=== PATIENT | female | born 1975 | race Caucasian/White ===

== ENCOUNTER → 2021-06-09 15:42 | Outpatient (CLI) | payer BC, SELFPAY ==
--- NOTE | ~2021-06-09 | MM_ITS ---
EXAMINATION: MM screening [facility] BI w carla HISTORY: Screening mammogram TECHNIQUE: Craniocaudal and mediolateral oblique 3-D tomosynthesis images were obtained and synthetic 2-D images were generated. CAD analysis was submitted and interpreted. COMPARISON: 10/23/2007 bilateral diagnostic mammogram BREAST PARENCHYMAL COMPOSITION: The breasts are extremely dense, which lowers the sensitivity of mamm ography. FINDINGS: Questionable 9 x 12 mm mass in upper mid right breast on craniocaudal view. Diagnostic righ t mammogram is recommended, with ultrasound if required Otherwise there is no evidence of suspicious mass, calcification, or architectural distortion to sugg est malignancy in either breast. There has been no other suspicious interval change. IMPRESSION: 1. Questionable 9 x 12 mm mass, upper mid right breast on craniocaudal view; 2. Diagnostic right mammogram is recommended, with ultrasound if required BI-RADS Category 0: Incomplete: Needs additional imaging evaluation. Reviewed, dictated and finalized at location A.
== END ==
PROVIDERS: PCP Obstetrics & Gynecology; Visit Provider Obstetrics & Gynecology
DX: Z12.31 Encounter for screening mammogram for malignant neoplasm of breast (principal); R92.8 Other abnormal and inconclusive findings on diagnostic imaging of breast
CPT/HCPCS: 77063; 77067

== ENCOUNTER → 2021-06-28 13:58 | Outpatient (CLI) | payer BC, SELFPAY ==
--- NOTE | ~2021-06-28 | MMUS_ITS ---
EXAMINATION: MM diagnostic yuriy RT w carla, US breast RT complete HISTORY: Follow-up right breast asymmetry TECHNIQUE: Additional 3-D tomosynthesis images of the right breast were performed and synthetic 2-D i mages were generated. CAD analysis was submitted and interpreted. High resolution complete right dustin st ultrasound was performed. COMPARISON: 06/09/2021 BREAST PARENCHYMAL COMPOSITION: The breasts are extremely dense, which lowers the sensitivity of mamm ography FINDINGS: MAMMOGRAPHIC FINDINGS: There are no discrete masses, calcifications or architectural distortion in the right breast to sugge st malignancy. There are scattered nodular densities in the right breast which are obscured by dense fibroglandular tissue. ULTRASOUND: Complete US of all 4 quadrants of the the right breast and retroareolar region was reviewed. There ar e multiple simple and complicated cysts of the right breast. In addition, at 1:00, 6 cm from the nipp le there is an oval hypoechoic 4 mm mass with parallel orientation, circumscribed margins, no posteri or features and no internal vascularity. At 7:00, 5 cm from the nipple there is an oval circumscribed hypoechoic mass measuring 4 mm with parallel orientation, no posterior features and no internal vasc ularity. At 11:00, 4 cm from the nipple there is an oval hypoechoic mass measuring 6 mm with parallel orientation, no internal vascularity and posterior acoustic enhancement. IMPRESSION: 1. Probable benign right breast masses. 2. Recommend 6 month follow-up diagnostic right mammogram and ultrasound BI-RADS category 3, probably benign findings. Reviewed, dictated and finalized at location A. IMPRESSION: 1. Probable benign right breast masses. 2. Recommend 6 month follow-up diagnostic right mammogram and ultrasound BI-RADS category 3, probably benign findings.
== END ==
PROVIDERS: PCP Obstetrics & Gynecology; Visit Provider Obstetrics & Gynecology
DX: R92.8 Other abnormal and inconclusive findings on diagnostic imaging of breast (principal)
CPT/HCPCS: 76641; 77061; 77065; G0279

== ENCOUNTER 2021-07-13 17:55 | Emergency (ER) | payer BC, SELFPAY ==
--- NOTE | ~2021-07-13 | XR_ITS ---
EXAM: XR foot RT min 3V DATE: 07/13/2021 18:10 HISTORY: trauma 2 days ago/ lateral foot pain . COMPARISON: None available. FINDINGS: Normal mineralization. Oblique, mildly comminuted, right fifth metatarsal shaft fracture w ith one half shaft width medial displacement. No lytic or blastic lesion. Plantar enthesopathy. Os na vicularis. No erosion or periosteal change. Soft tissues within normal limits. IMPRESSION: Minimally comminuted, oblique and medially displaced right fifth metatarsal shaft fractur e. Reviewed, dictated and finalized at location K. IMPRESSION: Minimally comminuted, oblique and medially displaced right fifth me tatarsal shaft fracture.
[2021-07-13 18:18] VITALS: BP 118/46; PULSE 76; RESP 18; TEMP 36.8; O2SAT 100
--- NOTE | 2021-07-13 18:18 | ED.LOWEXIN ---
HPI - Extremity Injury (Lower) General Chief Complaint: Extremity Injury, Lower Stated Complaint: Rt Foot Pain Time Seen by Provider: 07/13/21 18:18 History of Present Illness HPI Narrative: richard Dillard is a 46-year-old female with no PMH who comes to [facility] with pain in her right foot on the lateral side after falling off a barstool on Sunday and hit her foot. The area is bruised and she states she states it does not getting any better. Area is bruised Related Data Allergies Allergy/AdvReac Type Severity Reaction Status Date / Time Penicillins Allergy Severe Swelling Verified 07/13/21 18:07 Review of Systems Review of Systems: CONSTITUTIONAL: Denies fever, chills, sweats. EYES: Denies visual changes, redness, discharge. ENT: Denies rhinorrhea, congestion, sore throat, otalgia. CARDIOVASCULAR: Denies chest pain, palpitations, edema. RESPIRATORY: Denies dyspnea, wheezing, cough GASTROINTESTINAL: Denies abdominal pain, nausea, vomiting, diarrhea. GENITOURINARY: Denies dysuria, hematuria, abnormal discharge SKIN: Denies rash or itching. NEUROLOGIC: Denies numbness, or focal weakness. PSYCHIATRIC: Denies anxiety or depression. Right foot pain with bruising around the lateral side of the foot and fifth toe PMFSH Comments At time of signature, I agree with nursing past medical, surgical, social and family history. There is no relevant family history pertinent to the presenting complaint. Exam Narrative: GENERAL: This is a well-nourished, well-developed patient, in mild distress. HEAD: normocephalic, atraumatic. EYES: PERRL. Sclera clear/white. Vision is grossly intact. EARS: External ears normal, auditory canals clear and without drainage, TMs normal without perforation. Hearing grossly intact. NOSE: External nose normal without nasal discharge, nares without redness, no rhinorrhea. THROAT: Mucous membranes moist, posterior pharynx NECK: Neck supple, non-tender CARDIOVASCULAR: Regular rate and rhythm without murmurs, gallops, or rubs. RESPIRATORY: Clear to auscultation. Breath sounds equal bilaterally. No wheezes, rales, or rhonchi. GASTROINTESTINAL: Abdomen soft, non-tender, SKIN: warm, intact with no suspicious lesions or rash, good texture and turgor. NEURO: awake, alert, and oriented to person, place and time. There were no obvious focal neurologic abnormalities. Steady gait EXTREMITIES: Normal range of motion. BACK: Nontender without deformity Course Course Emergency Course: Patient comes to the [facility] for an x-ray of the foot after fall off a barstool on Sunday and her foot is swollen and bruised and not improved X-ray shows I minimally comminuted oblique mildly displaced right fifth metatarsal shaft fracture soft tissues are within normal limits Patient being sent to podiatry right foot in a an Vinny wrap and post op shoe narcotic approval escribe not functioning. Called in Tylenol 3 #20 for pain Level of Care: Express Care Visit Vital Signs Vital signs: Vital Signs Temperature 98.2 F 07/13/21 18:18 Pulse Rate 76 07/13/21 18:18 Respiratory Rate 18 07/13/21 18:18 Blood Pressure 118/46 L 07/13/21 18:18 Pulse Oximetry 100 07/13/21 18:18 Oxygen Delivery Room Air 07/13/21 18:18 Temperature 98.2 F 07/13/21 18:18 Pulse Rate 76 07/13/21 18:18 Respiratory Rate 18 07/13/21 18:18 Blood Pressure 118/46 L 07/13/21 18:18 Pulse Oximetry 100 07/13/21 18:18 Oxygen Delivery Room Air 07/13/21 18:18 MDM - Extremity Injury (Lower) Differential Diagnosis Differential diagnosis: Likely ankle sprain and strain, fracture of toe and other (Fracture foot) Critical Care Time Critical Care Time Critical Care Time: No Discharge Plan Discharge Clinical Impression: Metatarsal bone fracture Qualifiers: Encounter type: initial encounter Metatarsal bone: fifth Fracture type: closed Fracture alignment: displaced Laterality: right Qualified Code(s): S92.351A - Displaced fracture o
== END 2021-07-13 18:43 | disposition home or self-care (01) ==
PROVIDERS: Emergency Provider Nurse Practitioner
DX: S92.351A Displaced fracture of fifth metatarsal bone, right foot, initial encounter for closed fracture (principal); W07.XXXA Fall from chair, initial encounter
CPT/HCPCS: 73630; 99214; G0463

== ENCOUNTER 2021-07-22 04:49 | Day surgery (SDC) | payer BC, SELFPAY ==
[2021-07-19 08:31] VITALS: BMI 26.5
--- NOTE | 2021-07-19 08:39 | SUR.PREOP ---
-Report to the Outpatient Waiting Room, entrance under the green pavilion located off [facility], at time 1030 on date 07/19/21. OR Time: 1230. - You and your visitor will be asked a series of questions to screen for COVID 19 for your protection. - Only one visitor is allowed at this time. - The patient visitor is requested to leave or wait in car when not with patient. - A mask is required within the hospital. Patients may have clear liquids (water, carbonated beverages, clear teas, apple juice) until 3 hours prior to surgery with a maximum of 20 ounces. - No food from midnight until time of surgery. Take the following medications with a SIP of water the morning of surgery__N/A__ Medications to discontinue per physician ___N/A__ Date to take last dose_N/A_ Please no make-up, nail iraqi, hairspray, perfume, deodorant, or body powder the day of surgery. No jewelry (including any body piercings) or valuables the day of surgery, leave them at home. Please take a shower or bath the night before, or the morning of, surgery with an antibacterial soap. Wear comfortable, loose fitting clothing. - Jewelry must be removed prior to entering the operating room. Rings and piercings that are not removed may be cut off. - The hospital will not accept responsibility for valuables. - Please leave all valuables, including medications, at home the day of surgery. If you are going home after surgery, a licensed truck driver's offsider must drive you home. - NO public transportation without another adult. - We recommend that an adult stay with you for 24 hours following discharge. - We also recommend that you do not drive, make important decision, drink alcoholic beverages, or take any drugs that were not prescribed by your health care provider for at least 24 hours after your discharge time. Follow any additional instructions given to you from your surgeon. If you or anyone in your household have experienced Covid symptoms in the past week, please notify your surgeon or the nurse liaison at the phone number below for possible testing. Telephone instructions given to patient and asked if any additional questions and then verbalized understanding. Patient advised to call surgeon office or pre surgery nurse liaison [phone] if any additional questions.
[2021-07-22] VITALS (8 sets, daily range): BP systolic 108–135; BP diastolic 63–81; PULSE 77–93; RESP 10–20; TEMP 36.7–37; O2SAT 98–100
--- NOTE | ~2021-07-22 | XR_ITS ---
EXAMINATION: XR surgery orthopedic DATE: 07/22/2021 13:19 INDICATION: ORIF right foot fracture TECHNIQUE: 2 fluoroscopic images of the right forefoot were obtained during procedure performed by Dr Eugenia Farmer. Radiologist was not present for the imaging or procedure. The amount of fluoroscopy ti me used during this procedure was 0.1 minutes. COMPARISON: None. FINDINGS: Initial image demonstrates open reduction of an oblique extra articular fluid mid diaphyseal fracture of the right fifth metatarsal. Subsequent image demonstrates fixation of the flexor with dorsal plat e and screw fixation. Alignment post fixation appears near-anatomic on the provided projection. Expec nishant small amount of soft tissue gas at the operative bed. No other fractures identified. Mild osteoar thritis at the second and fifth tarsal metatarsal joints. IMPRESSION: 1. Near-anatomic alignment post open reduction and internal fixation of a mid diaphyseal fracture of the right fifth metatarsal. Reviewed, dictated and finalized at location A. IMPRESSION: 1. Near-anatomic alignment post open reduction and internal fixation of a mid d iaphyseal fracture of the right fifth metatarsal.
--- NOTE | 2021-07-22 07:14 | WPDANESEPPF ---
Anes - Initial Pre Proc Eval Procedure: Operation Date: 07/22/21 12:30 Proposed Procedures p Open Reduction Internal Fixation Fifth Metatarsal Fracture Right Foot - Brando Farmer DPM Date/Time: 07/22/21 07:14 Surgeon: Brando Farmer DPM Pre Op Diagnosis: 5th metatarsal fx right foot Patient Data Age: 46 Gender: F Height: 1.6 m Weight: 68.04 kg Allergies Allergy/AdvReac Type Severity Reaction Status Date / Time Penicillins Allergy Severe FACIAL Verified 07/22/21 10:33 SWELLING/HIVES Home Medications Medication Instructions Recorded Confirmed Type No Home Medications 07/19/21 07/22/21 History Patient hx anesthesia problems: none Family hx anesthesia problems: none Results Review: All pre-operative results and documents have been reviewed as part of the pre-operative evaluation. [facility] Past Medical History Medical History (Updated 07/22/21 @ 07:15 by Thierry Frazier DO) Migraine Social History Social History Smoking status: Never smoker Second hand tobacco smoke exposure: No Alcohol intake: current Drinks per week: 1 Substance use: never Living arrangements: with family Spiritual care concerns: No Anes - Eval Final PreProcedure Day of Procedure 07/22/21 07:14 Patient weight: overweight Heart: regular rate and rhythm Lungs: clear to auscultation Airway: Mallampati scale class II Neurological: alert and oriented Last oral intake: >/= 8 hours ASA classification: II Emergent: no Anesthetic plan: proceed Anesthesia type and monitoring: general LMA and standard monitoring Results Review: All pre-operative results and documents have been reviewed as part of the pre-operative evaluation. Informed Consent: The patient's anesthetic plan and its attendant risks and benefits were discussed with the patient/family/POA. Questions were solicited and answers provided to the satisfaction of the patient/family/POA.
[2021-07-22] MEDS: LACTATED RINGERS 1,000 ML 30 ML IV CONT (11:03)
--- NOTE | 2021-07-22 12:07 | WPDHPUPDATE1 ---
History and Physical Update Update Date/Time: 07/22/21 12:07 History and Physical has been reviewed, including an updated exam of the patient. There are NO changes in the patient's condition. Risks, benefits, and alternatives have been discussed and questions answered. Patient agrees to proceed with procedure.
[2021-07-22] MEDS: ceFAZolin 2 GM/D5W 50 ML 2 GM/50 ML BAG IVPB (12:27)
--- NOTE | 2021-07-22 13:31 | PM.OP ---
Procedure Note - Brief Procedure Note - Brief Date of procedure: 07/22/21 Pre-op diagnosis: 5th metatarsal fx right foot 5th metatarsal fracture right Post-op diagnosis: Same Procedure performed: ORIF 5th metatarsal fracture right Description of procedure: Under monitored sedation patient was brought into the operating room, placed on the operating table. Following general anesthesia the foot was then scrubbed, prepped, and draped in the usual aseptic manner. Esmark bandage was used to exsanguinate the patient?s right foot and the ankle tourniquet inflated to 250mm. Attention was directed to the 5 th metatarsal where a linear incision was made over the 5 th metatarsal. It was deepened down to the level of the bone using sharp and blunt dissection. Care was taken to identify and retract all vital, neural and vascular structures. The fracture was identified and reduced. Flouro was used to assess correction At this time it was noted that excellent correction was obtained. The fracture was fixated using one 2.0 lag screw and a plate with 3 2.0 locking screws. Wound was flushed with copious amounts of sterile normal saline. Deep tissue repaired using 3-0 vicryl and skin repaired using 5-0 vicryl. The wound was then covered with a dry, sterile compressive dressing consisting of Steristrips, antibiotic ointment, Adaptic, 4 x 4?s, Valentin and Coban. The ankle tourniquet was deflated and prompt capillary refill response noted to all digits of the right foot. Patient tolerated procedure and anesthesia well. She was transferred to the recovery room with vital signs stable and neurovascular status intact to all digits of the right foot. Following a period of post-operative monitoring the patient will be discharged home with written and oral post-operative instructions. Implants: 2.0 screw x 3 6 hole plate All from [employer] [place] set Anesthesia: GLMA Surgeon: Brando Farmer DPM Estimated blood loss (mL): 5
[2021-07-22] MEDS: oxyCODONE HCL (*CRX) 5 MG TAB IR PO (14:29)
== END 2021-07-22 15:00 | disposition home or self-care (01) ==
PROVIDERS: Visit Provider Podiatrist Foot & Ankle Surgery
PROC: (CPT 28485; principal; 2021-07-22 12:30)
DX: S92.351A Displaced fracture of fifth metatarsal bone, right foot, initial encounter for closed fracture (principal); W17.89XA Other fall from one level to another, initial encounter
CPT/HCPCS: 28485; A9270; J0690; J1100; J2250; J2405; J2704; J3010; J7120

== ENCOUNTER 2022-05-03 14:35 | Emergency (ER) | payer BC, SELFPAY ==
--- NOTE | 2022-05-03 14:43 | ED.URI ---
HPI - URI/Sore Throat General Chief Complaint: Upper Respiratory Infection Stated Complaint: Headache Time Seen by Provider: 05/03/22 14:50 Source: patient and RN notes reviewed Mode of arrival: ambulatory Limitations: no limitations History of Present Illness HPI Narrative: 47-year-old female presents with concern for headache, nasal congestion for 4 days. She reports she has tried Excedrin, cold medicine. She reports she has had a little bit of postnasal drainage in sore throat. She denies fever, chills, sweats. She denies nausea, vomiting. MD elicited complaint: nasal congestion and other (Headache) Related Data Allergies Allergy/AdvReac Type Severity Reaction Status Date / Time Penicillins AdvReac Severe FACIAL Verified 05/03/22 14:38 SWELLING/HIVES Review of Systems Review of Systems: CONSTITUTIONAL: Denies malaise, chills, sweats, or fever. EYES: Denies visual changes, redness, or discharge. ENT: Reports rhinorrhea, congestion, sinus pain and sore throat. CARDIOVASCULAR: Denies chest pain, palpitations, or edema. RESPIRATORY: Denies cough. Denies dyspnea. GASTROINTESTINAL: Denies abdominal pain, nausea, vomiting, diarrhea SKIN: Denies rash or itching. MUSCULOSKELETAL: Denies myalgia. NEUROLOGIC: Reports headache. All systems reviewed & are unremarkable except as noted in HPI and below PMFSH Past Medical History Medical History (Updated 05/03/22 @ 15:09 by Marzena Park NP) Migraine Social History Social History Smoking status: Never smoker Second hand tobacco smoke exposure: No Alcohol intake: current Drinks per week: 1 Substance use: never Living arrangements: with family Spiritual care concerns: No Comments At time of signature, agree with nursing past medical, surgical, social and family history. There is no relevant family history pertinent to the presenting complaint Exam Narrative: GENERAL: Well-appearing, well-nourished, and in no acute distress. HEAD: Normocephalic EYES: PERRLA, conjunctivae clear ENT: Nares clear, turbinates edematous and erythematous, clear discharge. Mucous membranes moist. TM pearly khalil with dull light reflex bilaterally; no tragal tenderness. Oropharynx not erythematous without lesions. Tonsils not enlarged and without exudate, no drooling, no hoarseness, no trismus, uvula midline. NECK: Supple. No lymphadenopathy CHEST: Clear to auscultation, breath sounds equal. No wheezing, rhonchi, rales, or stridor. No respiratory distress, speaks in full sentences. HEART: Regular rate and rhythm. No murmur heard. SKIN: Warm, dry, no rash. NEURO: Alert and oriented x3. PSYCH: Normal mood and affect Course Course Emergency Course: Ketorolac IM given for headache Patient is aware of diagnosis, understands and agrees to treatment plan. Anticipatory guidance given. Patient agrees to follow-up as directed and is aware of reasons to seek care at the emergency department. Portions of this record may have been created with voice recognition software Level of Care: Express Care Visit Vital Signs Vital signs: Reviewed. MDM - URI/Sore Throat MDM Narrative Medical decision making narrative: Differential diagnosis considered: Kc virus, strep pharyngitis, allergic rhinitis, upper respiratory tract infection, sinusitis, rhinosinusitis, nasopharyngitis. viral pharyngitis, otitis media, otitis externa, pneumonia, bronchitis, viral cough syndrome, viral syndrome, and influenza. Exam findings show no acute concerns or changes; patient is non-toxic appearing and is in no distress. Patient is appropriate for outpatient treatment and follow-up. Lab Data Attestation: I reviewed the patient's lab results. Critical Care Time Critical Care Time Critical Care Time: No Discharge Plan Discharge Clinical Impression: Sinusitis Qualifiers: Sinusitis location: unspecified location Chronicity: acute Recurrence: non-re
[2022-05-03 14:44] VITALS: BP 128/72; PULSE 96; RESP 18; TEMP 36.9; O2SAT 100
[2022-05-03] MEDS: KETOROLAC (*BKC) 60 MG/2 ML VIAL IM (15:08)
== END 2022-05-03 15:20 | disposition home or self-care (01) ==
PROVIDERS: Emergency Provider Nurse Practitioner
DX: J01.90 Acute sinusitis, unspecified (principal)
CPT/HCPCS: 87081; 87426; 87880; 96372; 99213; C9803; G0463; J1885

== ENCOUNTER 2022-08-20 09:56 | Emergency (ER) | payer OTHER, SELFPAY ==
--- NOTE | ~2022-08-20 | XR_ITS ---
XR foot LT min 3V DATE: 08/20/2022 10:33 INDICATION: Dropped pallet on top of foot last night. Foot pain. TECHNIQUE: 4 views COMPARISON: None FINDINGS: Mild plantar calcaneal enthesopathy without erosive change or periostitis. Os tibiale externum, normal variant. Mild osteoarthritis at the first metatarsophalangeal joint. No fracture, dislocation, periosteal reaction or bone destruction is detected. IMPRESSION: No fracture or dislocation Mild first metatarsophalangeal osteoarthritis Mild plantar calcaneal enthesopathy Reviewed, dictated and finalized at location A.
[2022-08-20 10:23] VITALS: BP 110/73; PULSE 83; RESP 16; TEMP 36.2; O2SAT 100
--- NOTE | 2022-08-20 10:40 | ED.LOWEXIN ---
HPI - Extremity Injury (Lower) General Chief Complaint: Extremity Injury, Lower Stated Complaint: lt foot injury Time Seen by Provider: 08/20/22 10:40 Source: patient Mode of arrival: ambulatory Limitations: no limitations History of Present Illness HPI Narrative: 47 y/o female presented for c/o left foot pain after injury yesterday. States she dropped a wooden palate on her foot and has had pain to the top of the foot since. Denies numbness, tingling or weakness. Walking with a limp. Taking ibuprofen and has applied ice and elevated the foot. States the swelling has gone down. Related Data Home Medications Medication Instructions Recorded Confirmed No Home Medications 08/20/22 08/20/22 Allergies Allergy/AdvReac Type Severity Reaction Status Date / Time Penicillins AdvReac Severe FACIAL Verified 08/20/22 10:15 SWELLING/HIVES Review of Systems Review of Systems: CONSTITUTIONAL: Denies body aches, fever, chills EYES: Denies visual changes ENT: Denies rhinorrhea, congestion CARDIOVASCULAR: Denies chest pain, palpitations, or edema. RESPIRATORY: Denies cough or dyspnea. GASTROINTESTINAL: Denies abdominal pain, nausea, vomiting, or diarrhea. SKIN: Denies rash, itching, or wounds. MUSCULOSKELETAL: Reports foot pain Denies back pain, joint pain, or myalgia. NEUROLOGIC: Denies headache, numbness, tingling, or weakness. All systems reviewed & are unremarkable except as noted in HPI and below PMFSH Past Medical History Medical History Migraine Social History Social History Smoking status: Never smoker Second hand tobacco smoke exposure: No Alcohol intake: current Drinks per week: 1 Substance use: never Living arrangements: with family Spiritual care concerns: No Comments At time of signature, I have reviewed and agree with nursing past medical, surgical, social and family history unless otherwise noted. Please see nursing chart for further information. There is no relevant family history pertinent to the presenting complaint Exam Narrative: GENERAL: Well-appearing HEAD: Normocephalic, atraumatic. EYES: PERRLA, conjunctivae clear NECK: Supple. CHEST: Speaks in full sentences. No respiratory distress. HEART: Regular rate and rhythm. Normal and equal peripheral pulses. EXTREMITIES: Left dorsal mid foot with mild swelling and tenderness; foot has normal strength and sensation, normal range of motion. No ecchymosis, No open wounds, or obvious deformity; alignment normal, pulse palpable and equal bilaterally, skin warm, dry, pink. Capillary refill less than 3 seconds. SKIN: Warm, dry, no rash. NEURO: Alert and oriented x3. PSYCH: Normal mood and affect Course Course Emergency Course: Patient is aware of diagnosis, understands and agrees to treatment plan. Anticipatory guidance given. Patient agrees to follow-up as directed and is aware of reasons to seek care at the emergency department. Portions of this record may have been created with voice recognition software Level of Care: Express Care Visit Vital Signs Vital signs: Vital Signs Temperature 97.2 F L 08/20/22 10:23 Pulse Rate 83 08/20/22 10:23 Respiratory Rate 16 08/20/22 10:23 Blood Pressure 110/73 08/20/22 10:23 Pulse Oximetry 100 08/20/22 10:23 Oxygen Delivery Room Air 08/20/22 10:23 Temperature 97.2 F L 08/20/22 10:23 Pulse Rate 83 08/20/22 10:23 Respiratory Rate 16 08/20/22 10:23 Blood Pressure 110/73 08/20/22 10:23 Pulse Oximetry 100 08/20/22 10:23 Oxygen Delivery Room Air 08/20/22 10:23 Reviewed MDM - Extremity Injury (Lower) MDM Narrative Medical decision making narrative: Results of x-ray reviewed with patient. Discussed physical exam findings. Advised supportive measures and signs/symptoms to go to the ER. Pt is appropriate for outpt treatment
== END 2022-08-20 10:48 | disposition home or self-care (01) ==
PROVIDERS: Emergency Provider Nurse Practitioner Family
DX: S90.32XA Contusion of left foot, initial encounter (principal); W20.8XXA Other cause of strike by thrown, projected or falling object, initial encounter
CPT/HCPCS: 73630; 99213; G0463

== ENCOUNTER 2024-06-21 15:48 | Emergency (ER) | payer OTHER, SELFPAY ==
--- NOTE | ~2024-06-21 | XR_ITS ---
XR foot RT min 3V Ordering provider: BRENDAN Saab History: . fall rolled foot today/lateral pain swelling . Comparison: None. FINDINGS: BONES: No acute fracture or dislocation. Postoperative changes in the fifth metatarsal bone. JOINT SPACES: Normal. No tarsal coalition. SOFT TISSUES: Normal. Calcaneal spur. IMPRESSION: No acute osseous abnormality of the right foot. Reviewed, dictated and finalized at location A.
--- OUTSIDE RECORDS SUMMARY | 2024-06-21 15:50 | XMS_ITS | Data Portability ---
Author Organization [facility] Address [address] [place] [address] Care Team Providers Care Transition Assistant Name Role Phone GILBERTO DUARTE Primary Care Provider [phone] Assessment Encounter Date Assessment Date Assessment LastModified by Organization Details LastModified Time 04/19/2021 04/19/2021 healthy female exam patient declines std testing pap done, discussed guidelines mammogram ordered and encouraged contraception- tubes tied FU 1 year or prn [email or web address] Not available 04/19/2021 12:49:11 04/07/2024 04/07/2024 Annual gynecological exam performed. Patient will come back in a year unless there are new symptoms. [email or web address] Not available 04/04/2024 09:15:03 Plan of Treatment Reminders Order Date Submit Date Provider Last Modified By Organization Details Last Modified Time Details Appointments MED CHECK 2024 05:00P M EDDA BOLDEN NP Not available Not available Not available Lab None recorded. Referral None recorded. Procedures colonosco py screening (PROC) 2024 025 [facility], [address], [address], [place], [address], 04/07/2024 18:03:41 Surgeries None recorded. Imaging MAMMO, screening , digital, bilateral 2024 025 [facility], [address], [place], [address], 04/14/2024 04:05:42 Medication Orders progester one micronize d 100 mg capsule 2024 [facility] #[id number], [address] [place], [address], 05/19/2024 17:59:41 estradiol 0.05 mg/24 hr semiweekl y transderm al patch 2024 025 [id number] [address] [place], [address], 05/19/2024 17:59:41 Effexor XR 37.5 mg capsule,e xtended release 2024 [id number] [address] [place], [address], 04/07/2024 17:14:35 Patient TargetsNo targets recorded. Patient InstructionsNo instructions recorded. Reason for Referral None Reported. Results Created Date Observation Date Name Description Value Unit Range Abnormal Flag Note LastModifiedBy Organization Detail LastModifiedTime 04/20/19 22 04/19/2021 IMAGE GUIDE D PAP AND HPV REGAR DLESS image guided Pap, HPV regardless of Pap result SEE RESULT S BELOW CASE REPOR T: Cytol ogy Gynec ologi adams Repor t Case: [id number] Autho don villegas Provi freedom: Meghan Encarnacion MD Colle cted: 04/19 1456 Order ing Locat ion: [place] Patho logy Recei jack: 04/20 0053 First Scree n: María Flores CT Speci men: Scree carol Pap - Image d, Cervi x STATE MENT OF ADEQU ACY: Satis facto ry for evalu ation Trans forma tion zone compo nent prese nt FINAL DIAGN OSIS: Negat kylah for Intra epith elial Lesio n or Hardeep nash (NIL) . Elect miguelina dillon denia d by María Flores CT on 2021 at 11:22 AM ----- ----- ----- ----- ----- ----- ----- ----- ----- ----- ----- ----- ----- ----- ----- ----- ----- ---- HPV RESUL TS: HPV mRNA E6/E7 : No HPV mRNA Detec nishant NOTE: This high risk HPV mRNA assay detec ts fourt een high- risk HPV types (16, 18, 31, 33, 35, 39, 45, 51, 52, 56, 58, 59, 66, 68) witho ut diffe renti ation . COMME NT: Note: This speci men was revie wed by a Cytot echno logis t and/o r Patho logis t (as indic ated in this repor t) after evalu ation using the Thinp rep Imagi ng Syste m. CLINI ADAMS INFOR MATIO N: Menst rual Statu s: LMP (if appli cable ): Clini adams Histo ry/Pr eviou s Pap: Type of Neopl aubrie (if appli cable ): Signi fican t Clini adams Findi ngs: Other Histo ry: Hormo richard (if appli cable ): PAP EDUCA PATRICIA L NOTE: The Pap Test is a scree carol test with an inher ent false negat kylah rate. Liqui d-bas ed sampl ing may decre ase, but will not elimi barbara, false negat kylah resul ts. A negat kylah resul t does not precl ude the prese nce and/o r devel opmen t of disea se, since the prese nce of abnor mal cells in the sampl e depen ds on the locat ion of the lesio n and sampl ing techn ique. Verito nued regul ar scree carol is the best metho d of cance r preve ntion . If repor nishant cytol ogic findi ng do not corre late with physi adams and/o r histo rical findi ngs, furth er inves tigat ion is recom sabrina d, as clini manuel cárdenas nted. Not Available [facility] (Lab) [address], [place], [address], 04/26/2021 12:24:52 04/09/19 25 04/08/2024 IMAGE GUIDE D PAP AND HPV REGAR DLESS image guided Pap, HPV regardless of Pap result SEE RESULT S BELOW CASE REPOR T: Cytol ogy Gynec ologi adams Repor t Case: [id number] Autho don villegas Provi freedom: Dermo dy, Edda , ANP, SLIP LASTER Colle cted: 04/08 0841 Order ing Locat ion: [place] Patho logy Recei jack: 04/09 0756 First Scree n: Ledy Hartman, CT Speci men: Ugo medina Pap - Image d, Cervi x STATE MENT OF ADEQU ACY: Satis facto ry for evalu ation Trans forma tion zone compo nent prese nt ----- ----- ----- ----- ----- ----- ----- ----- ----- ----- ----- ----- ----- ----- ----- ----- ----- ---- FINAL DIAGN OSIS: Negat kylah for Intra epith elial Isabella mccollum or Hardeep nash (NIL) . Elect miguelina loza d by Ledy Hartman , CHRISTOPHE on 025 at 0922 [employer] PROF[employer] ----- ----- ----- ----- ----- ----- ----- ----- ----- ----- ----- ----- ----- ----- ----- ----- ----- ---- HPV RESUL TS: HPV mRNA E6/E7 : No HPV mRNA Detec nishant NOTE: This high risk HPV mRNA assay detec ts fourt een high- risk HPV types (16, 18, 31, 33, 35, 39, 45, 51, 52, 56, 58, 59, 66, 68) witho ut diffe renti ation . COMME NT: This speci men was revie wed by a Cytot echno logis t and/o r Patho logis t (as indic ated in this repor t) after evalu ation using the Thinp rep Imagi ng Syste m. CLINI ADAMS INFOR MATIO N: Menst rual Statu s: LMP (if appli cable ): Clini adams Histo ry/Pr eviou s Pap: Type of Neopl aubrie (if appli cable ): Signi fican t Clini adams Findi ngs: Other Histo ry: Hormo richard (if appli cable ): PAP EDUCA PATRICIA L NOTE: The Pap Test is a scree carol test with an inher ent false negat kylah rate. Liqui d-bas ed sampl ing may decre ase, but will not elimi barbara, false negat kylah resul ts. A negat kylah resul t does not precl ude the prese nce and/o r devel opmen t of disea se, since the prese nce of abnor mal cells in the sampl e depen ds on the locat ion of the lesio n and sampl ing techn ique. Verito nued regul ar scree carol is the best metho d of cance r preve ntion . If repor nishant cytol ogic findi ng do not corre late with physi adams and/o r histo rical findi ngs, furth er inves tigat ion is recom sabrina d, as clini manuel warra nted. Not Available [facility] ([facility]) [address], [place], [address], 04/11/2024 10:27:56 06/10/19 22 06/09/2021 MAMMO , scree carol, bilat eral No observ ation record ed. [facility] [address], [place], [address], 06/13/2021 10:52:25 06/11/19 22 06/09/2021 MAMMO , scree carol, bilat eral No observ ation record ed. [facility] [address], [place], [address], 08/12/2021 10:39:55 06/29/19 22 06/28/2021 MAMMO , diagn ostic , unila teral No observ ation record ed. [facility] [address], [place], [address], 06/29/2021 15:04:20 Result Notes None recorded. Procedures Surgical History Date Name Laterality Status Provider Name and Address Organization Details Recorded Time 3 Date of Last Pap Smear completed [facility] 05/19/2024 17:38:15 3 Date of Last Mammogram completed [facility] 05/19/2024 17:38:14 4 Tubal Ligation completed [facility] 04/19/2021 12:05:34 Ectopic completed [facility] 04/07/2024 17:00:31 Imaging Results Imaging Date Name Status LastModified by Organiz ation Details LastModified Time 06/09/2021 MAMMO, screening, bilateral completed [facility] [address], [place], [address], 06/13/2021 10:52:25 06/09/2021 MAMMO, screening, bilateral completed [facility] [address], [place], [address], 08/12/2021 10:39:55 06/28/2021 MAMMO, diagnostic, unilateral completed [facility] [address], [place], [address], 06/29/2021 15:04:20 Procedure Notes None recorded. Medical Equipment None Reported. Medications Name Sig Start Date Stop Date Status Note LastModified by Organization Details LastModified Time venlafaxine ER 37.5 mg capsule,ext ended release 24 hr TAKE 1 CAPSULE BY MOUTH EVERY DAY active Not Available Not Available No t Available sumatriptan 100 mg tablet PLEASE SEE ATTACHED FOR DETAILED DIRECTION S active Not Available Not Available No t Available estradiol 0.05 mg/24 hr semiweekly transdermal patch APPLY 1 PATCH TRANSDERM ALLY TWICE A WEEK active Not Available Not Available No t Available progesteron e micronized 100 mg capsule TAKE 1 CAPSULE BY MOUTH EVERYDAY AT BEDTIME active Not Available Not Available No t Available nitrofurant oin monohydrate /macrocryst als 100 mg capsule TAKE 1 CAPSULE TWICE A DAY FOR 5 DAYS 05/19 completed Not Available Not Available Not Available Ubrelvy 100 mg tablet TAKE 1 TABLET EVERY DAY NEEDED FOR 30 DAYS active Not Available Not Available No t Available Vitals Date Recorded Body height Body mass index (BMI) Body weight Systolic blood pressure Diastolic blood pressure Provider Name and Address Organization Details Last Updated DateTime 04/19/2021 160.02 cm 27.1 kg/m2 86973.63 g 129 mm[Hg] 77 mm[Hg] [facility] 2 12:05:21 Date Recorded Body height Body mass index (BMI) Body weight Systolic blood pressure Diastolic blood pressure Provider Name and Address Organization Details Last Updated DateTime 04/07/2024 160.02 cm 21.5 kg/m2 80685.83 g 119 mm[Hg] 81 mm[Hg] [facility] 5 16:55:59 Date Recorded Body height Body mass index (BMI) Body weight Systolic blood pressure Diastolic blood pressure Provider Name and Address Organization Details Last Updated DateTime 05/19/2024 160.02 cm 21.1 kg/m2 61581.49 g 123 mm[Hg] 86 mm[Hg] [facility] 5 17:46:44 Social History Question Answer Notes LastModified by Organizat ion Details LastModified Time Tobacco Smoking Status Never Smoker [facility] 04/19/2021 10:23:21 Do You Have An Advance Directive? No [email or web address] Information n ot available 04/07/2024 Are You Blind Or Do You Have Difficulty Seeing? No [email or web address] Information n ot available 04/07/2024 What Is Your Level Of Caffeine Consumption? Moderate Information not available 04/07/2024 How Much Tobacco Do You Chew? None [email or web address] Information not available 04/07/2024 In The 14 Days Before Symptom Onset, Have You Had Close Contact With A Laboratory-confirm ed COVID-19 While That Case Was Ill? No Information n ot available 04/07/2024 In The 14 Days Before Symptom Onset, Have You Had Close Contact With A Person Who Is Under Investigation For COVID-19 While That Person Was Ill? No [email or web address] Information not available 04/07/2024 Have You Been To An Area Known To Be High Risk For COVID-19? No [email or web address] Information not available 04/07/2024 Are You Deaf Or Do You Have Serious Difficulty Hearing? No [email or web address] Information not available 04/07/2024 What Type Of Diet Are You Following? REGULAR [email or web address] Information n ot available 04/07/2024 What Is The Highest Grade Or Level Of School You Have Completed Or The Highest Degree You Have Received? [id number] [email or web address] Information not available 04/07/2024 Are There Any Guns Present In Your Home? No Information not available 04/07/2024 Have You Ever Been Counseled For Unhealthy Alcohol Use? No Information not available 04/19/2021 Do You Use Protection During Sex? No [email or web address] Information not available 04/07/2024 Do You Use Your Seat Belt Or Car Seat Routinely? Yes [email or web address] Information not available 04/07/2024 Do You Have Smoke And Carbon Monoxide Detectors In Your Home? Yes Information not available 04/07/2024 How Much Tobacco Do You Smoke? No [email or web address] Information not available 04/07/2024 Do You Use Sunscreen Routinely? Yes [email or web address] Information not available 04/07/2024 Has Tobacco Cessation Counseling Been Provided? No Information not available 04/19/2021 Have You Used IV Drugs? No [email or web address] Information not available 04/07/2024 Sex: Unknown Functional Status Question Answer Note LastModified by Organizat ion Details LastModified Time Do you use any illicit or recreational drugs? No Information not available 04/19/2021 Do you or have you ever used any other forms of tobacco or nicotine? No Information not available 04/19/2021 What is your level of alcohol consumption? Occasional Information not available 04/19/2021 Are you able to walk? 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 Occasional [email or web address] Information not available 04/07/2024 Mental Status Question Answer Note LastModified by Organization D etails LastModified Time Do you feel stressed (tense, restless, nervous, or anxious, or unable to sleep at night)? [id number] [email or web address] Information not available 04/07/2024 Family History Relationship Description Onset Age of this Age Resolved Age Notes LastModified by Organization Details LastModified Time Paternal Grandmother Carcinoma in situ of breast [email or web address] Not available 2021 12:06:33 Medical History Condition Response Allergies (Food, seasonal, environmental ) N Other N Drug/Latex Allergies/Reactions N Breast Cancer N Blood Transfusion N Lung Disease N Dermatologic Disorders N Defects or Inherited Disease N Breast Problem N Gestational Diabetes N Hematologic disorders N Anesthesia Complications N History of STI N Deep Vein Thrombosis N Polycystic ovary syndrome N Anxiety Disorder N Autoimmune disease N Arthritis N Polyps N Infertility N History of abnormal pap N Acid Reflux (GERD) N Cancer N Varicosities N Stroke N Neurologic/Epilepsy N Endometriosis N High Cholesterol N Headaches Y Fibromyalgia N Kidney Disease N Heart Problems N Thyroid Problems N Kidney or Bladder Problems N GI Problems N Eating Disorder N Anemia N Art (IVF or FET) N Psychiatric Illness N Ovarian Cancer N Diabetes N Pulmonary (TB, Asthma) N Hepatitis/Liver Disease N No Past Medical History N Eczema N Urinary Tract Infection N Abuse/Domestic Violence N Asthma N Trauma/Violence N Depression/ depression N Heart Disease N Pre-Eclampsia N Hypertension N Osteoporosis N Thrombophilias N Gynecological History Statement/Question Response Abnormal Pap N Date of Last Mammogram 02/06/2012 Flow Heavy Date of LMP 01/21/2024 On BCP's at Conception? N N Was last menstrual period normal N STIs/STDs N HPV Vaccine N Duration of Flow (days) 7 Current Control Method Tubal Ligat ion Age at First Child 19 Are cycles usually normal N Frequency of Cycle (Q days) 28 Sexually Active? Y Menses Monthly N Age of first menstrual cycle 16 Date of Last Pap Smear 05/17/2012 Sexual Problems? N LMP Approximate N Obstetrics History GPAL:G 4 P 3 0 1 3 Type Value Full Term 3 Living 3 Ectopics 1 Total 4 Past Encounters Encounter ID Performer Location Encounter Start Date Encounter Closed Date Diagnosis/Indication Diagnosis SNOMED-CT Code Diagnosis ICD10 Code Diagnosis Note [id number] Meghan Sanchez MD [facility] [address] [address] 04/19/2021 11:55:38 04/19/2021 13:03:19 Gynecologic examination 15163575 Z01.419 [id number] Radames Tristan MD [facility] [address] [address] 04/07/2024 16:47:23 04/07/2024 17:24:31 Gynecologic examination 34434694 Z01.419 Annual gynecologi adams exam performed. Patient will come back in a year unless there are new symptoms. Suggest Calcium with Vitamin D if not eating in diet. Patient advised to get annual flu shot. Recommend yearly physicals and perform monthly breast exams. Genetic testing is available for patients with family history of cancer. Engage in safe sexual practices, use condoms. Encouraged to have daily exercise. Avoid tobacco and illicit drugs, moderation of alcohol. If BMI greater than 25 dietary consult advised. If you have any questions please call or email. mammogram- due; order given, pt to schedule colon cancer screening - GI referral for screening colonoscop y at [facility] DEXA scan- n/a Pap smear- pap w/ HPV collected laboratory evaluation - PCP STI testing - declined Screening mammography 24 090131 Z12.31 Menopausal symptom 10131 002 N95.1 Reviewed self-help strategies (dietary changes/ex ercise/acc upuncture/ etc.), herbal and other OTC therapies, hormonal options as well as other medication s used to treat common menopausal symptoms. Discussed the risks, benefits and potential side effects and bleeding patterns with use of HRT, SSRIs, and Veozah. Reviewed the risk implicatio ns with short term vs terminal system operator use. Patient interested in trying Effexor. Rx sent.RTO in 6 week f/u med check Screening for malignant neoplasm of colon [id number] Z12.11 [id number] Radames Tristan MD [facility] [address] [address] 05/19/2024 17:32:35 05/19/2024 18:08:13 Menopausal symptom 22099273 N95.1 Discussed trialling HRT with transderma l estradiol and oral progestero ne since Effexor did not help with patient's symptoms of hot flashes and night sweats. Patient interested in HRT. RTO in 8 weeks for med check. We discussed Menopausal Hormone therapy (MHT) for women with intact uterus with the goals of reliving vaso-motor sx's using estrogen/p rogestin therapy (EPT) using lowest doses for shortest duration in women 40-59yo. Contraindi cations include: Hx of DVT or thrombolic events, High cholestero l, Hx of breast cancer, known CHD, active liver disease, unexplaine d vag bleeding, high risk endometria l cancer, TIA. Side effects can include but are not limited to: Irregular vag bleeding, breast tenderness , nausea, weight changes, libido changes, nausea. Adverse Rxn: Elevated BP migraine w/ visual changes, breast cancer dx, UT/stroke, DVT/PE, Endometria l cancer. Please contact office with any new or worsening side effects or adverse reactions. Or if a medical emergency please go to nearest ED/[facility] care for further evaluation . Health Concerns Section Related Observation LastModified by Organization Detai ls LastModified Time None Recorded Concern Status LastModified by Organization Details LastModified Time None Recorded Advance Directives Directive N: Payers Encounter Date Sequence Insurance Name Policy Number Policy Gonzalez Covered Member ID Gonzalez Member ID Guarantor Name 04/19/2021 2 [place] [id number] 02 Carlos Robles Nishant [id number] Farrahkingston Dillard 04/07/2024 1 [employer] (PPO) Kyle Haqy [id number] Farrahkingston Dillard 04/07/2024 2 [place] [id number] 02 Carlos Margaret Nishant [id number] Farrah Nishant 05/19/2024 1 [employer] (PPO) Kyle Dillard [id number] Farrah Dillard Notes Date Note Type Note Provider Name and Address Organization Details Recorded Time 04/19/2021 text/html Patient is a 46y o who presents for an annual exam. 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 Paps were always normal. Periods still regular. last pap-2012 mammogram-2012 sexually active-y contraception-tuba l seatbelts-y exercise-y depression-denies domestic violence-denies tobacco-n concerns-n Meghan Sanchez MD [address], [place], [address], [facility] 04/19/2021 12:50:08 04/07/2024 text/html Annual GYNReport ed bypatient.Menstrua l cycle:Irregular cycle intervals Urinary symptoms:No hematuria; No incontinence Vulva:No genital lesion Vagina:Normal vaginal discharge Breast:No breast pain; No breast lump; No nipple discharge Current Contraception:Tuba l ligation Sexual complaints:No sexual complaints; No pain during intercourse; Normal libido Menopausal Symptoms:Normal vaginal lubrication;Hot flashes;Insomnia due to night sweats Psychological symptoms:No depression; No anxiety; No PMDD Preventive measures:Encourage self breast examination; Encourage regular exercise; Encourage no tobacco use; Encourage regular mammograms starting age 40 Patient presents for annual well woman exam. Patient denies concerns today. Patient reports irregular cycle intervals since last year, every 28-90 days.Reports occasional night sweats and hot flashes. Clarissa davey, [facility] 04/07/2024 18:00:27 05/19/2024 text/html 49 y/o harriet-menopausal female presents for med check after starting Effexor 37.5 mg PO daily to treat vasomotor symptoms. Patient states that the medication did not help her night sweats and she reports waking up several times per night still.Patient states that her LMP was 01/20/25. EDDA BOLDEN NP [address], [place], [address], [facility] 05/19/2024 18:03:12 OBGyn Episode Ob Episode Information Episode Created Date Number of Fetuses Patient Bloodtype Patient rh Status Prepregnancy Weight lbs Domestic Partner Domestic Partner Phone Father Name Patrol Judge Status 04/20/19 22 1 CLOSED Fetus Data First Name Last Name Admitted to NICU Weight (g) Sex Living Outcome Pediatric Complications Fetus ID Race Codes Race Delivery Type Ectopic [id number] Giancarlo Calculation Initial Giancarlo Date Initial Exam Date Initial Exam Provider Initial Ultrasound Date Last Menstrual Period Date Ultra Sound Weeks Gestation 0 Eighteen To Twenty Week Giancarlo Update Ultra Sound Date Fundal Height At Umbil Quickening Date Ultra Sound Latest Weeks Gestation Final Giancarlo Confirmed By Final Giancarlo Confirmed Date Final Giancarlo Date Ultra Sound Latest Days Gestation 0 0 Menstrual History Last Menstrual Date Menses Monthly On Bcp Conception Prior Menses Frequency Hcg Plus Date Menarche Onset Age Delivery Information Delivery Date Delivery Type Labor Anesthesia Weeks Gestation Incision Type Labor Labor Length Hrs Delivered By Post Complications Tubal Sterilization Discharge Date Comments 5 Discharge Information Feeding Method Contraceptive Method Maternal HG B and HCT Levels Ob Episode Information Episode Created Date Number of Fetuses Patient Bloodtype Patient rh Status Prepregnancy Weight lbs Domestic Partner Domestic Partner Phone Father Name Patrol Judge Status 04/20/19 22 1 CLOSED Fetus Data First Name Last Name Admitted to NICU Weight (g) Sex Living Outcome Pediatric Complications Fetus ID Race Codes Race Delivery Type 3628.73 6 M Full Term [id number] Vaginal Delivery Giancarlo Calculation Initial Giancarlo Date Initial Exam Date Initial Exam Provider Initial Ultrasound Date Last Menstrual Period Date Ultra Sound Weeks Gestation 0 Eighteen To Twenty Week Giancarlo Update Ultra Sound Date Fundal Height At Umbil Quickening Date Ultra Sound Latest Weeks Gestation Final Giancarlo Confirmed By Final Giancarlo Confirmed Date Final Giancarlo Date Ultra Sound Latest Days Gestation 0 0 Menstrual History Last Menstrual Date Menses Monthly On Bcp Conception Prior Menses Frequency Hcg Plus Date Menarche Onset Age Delivery Information Delivery Date Delivery Type Labor Anesthesia Weeks Gestation Incision Type Labor Labor Length Hrs Delivered By Post Complications Tubal Sterilization Discharge Date Comments 4 38 Discharge Information Feeding Method Contraceptive Method Maternal HG B and HCT Levels Ob Episode Information Episode Created Date Number of Fetuses Patient Bloodtype Patient rh Status Prepregnancy Weight lbs Domestic Partner Domestic Partner Phone Father Name Patrol Judge Status 04/20/19 22 1 CLOSED Fetus Data First Name Last Name Admitted to NICU Weight (g) Sex Living Outcome Pediatric Complications Fetus ID Race Codes Race Delivery Type 3486.76 1704 F Full Term [id number] Vaginal Delivery Giancarlo Calculation Initial Giancarlo Date Initial Exam Date Initial Exam Provider Initial Ultrasound Date Last Menstrual Period Date Ultra Sound Weeks Gestation 0 Eighteen To Twenty Week Giancarlo Update Ultra Sound Date Fundal Height At Umbil Quickening Date Ultra Sound Latest Weeks Gestation Final Giancarlo Confirmed By Final Giancarlo Confirmed Date Final Giancarlo Date Ultra Sound Latest Days Gestation 0 0 Menstrual History Last Menstrual Date Menses Monthly On Bcp Conception Prior Menses Frequency Hcg Plus Date Menarche Onset Age Delivery Information Delivery Date Delivery Type Labor Anesthesia Weeks Gestation Incision Type Labor Labor Length Hrs Delivered By Post Complications Tubal Sterilization Discharge Date Comments 6 41 Discharge Information Feeding Method Contraceptive Method Maternal HG B and HCT Levels Ob Episode Information Episode Created Date Number of Fetuses Patient Bloodtype Patient rh Status Prepregnancy Weight lbs Domestic Partner Domestic Partner Phone Father Name Patrol Judge Status 04/20/19 22 1 CLOSED Fetus Data First Name Last Name Admitted to NICU Weight (g) Sex Living Outcome Pediatric Complications Fetus ID Race Codes Race Delivery Type [phone] F Full Term [id number] Vaginal Delivery Giancarlo Calculation Initial Giancarlo Date Initial Exam Date Initial Exam Provider Initial Ultrasound Date Last Menstrual Period Date Ultra Sound Weeks Gestation 0 Eighteen To Twenty Week Giancarlo Update Ultra Sound Date Fundal Height At Umbil Quickening Date Ultra Sound Latest Weeks Gestation Final Giancarlo Confirmed By Final Giancarlo Confirmed Date Final Giancarlo Date Ultra Sound Latest Days Gestation 0 0 Menstrual History Last Menstrual Date Menses Monthly On Bcp Conception Prior Menses Frequency Hcg Plus Date Menarche Onset Age Delivery Information Delivery Date Delivery Type Labor Anesthesia Weeks Gestation Incision Type Labor Labor Length Hrs Delivered By Post Complications Tubal Sterilization Discharge Date Comments 2 39 IVF Discharge Information Feeding Method Contraceptive Method Maternal HG B and HCT Levels
--- OUTSIDE RECORDS SUMMARY | 2024-06-21 15:50 | XMS_ITS | Clinical Summary ---
Author Organization [facility] Address [address] [place] [id number] Care Team Providers Care Fire Control Technician B Name Role Phone None, Provider MD Primary Care Provider Unavaila ble Allergies Active Allergy Reactions Criticality Noted Date Comments Penicillins Rash,Swelling Low 10/26/2022 Social History Tobacco Use Types Packs/Day Years Used Date Smoking Tobacco: Never Smokeless Tobacco: Never Tobacco Cessation:Counseling Given: Not Answered Alcohol Use Standard Drinks/Week Comments Never 0 (1 standard drink = 0.6 oz pur e alcohol) Comments No Sex and Gender Information Value Date Recorded Sex Assigned at Not on file Legal Sex Female 8:54 AM CDT Gender Identity Not on file Sexual Orientation Not on file Last Filed Vital Signs Vital Sign Reading Time Taken Comments Blood Pressure 125/91 10/26/2022 11:12 AM CDT Pulse 85 10/26/2022 11:12 AM CDT Temperature 36.4 C (97.5 F) 10/26/2022 11:12 AM CDT Respiratory Rate 16 10/26/2022 11:12 AM CDT Oxygen Saturation 100% 10/26/2022 11:12 AM CDT Inhaled Oxygen Concentration - - Weight 72.6 kg (160 lb) 10/26/2022 8:57 AM CDT Height 160 cm (5' 3 ) 10/26/2022 8:57 AM CDT Body Mass Index 28.34 10/26/2022 8:57 AM CDT Plan of Treatment Health Maintenance Due Date Last Done Comments Colorectal Cancer Screening Colonoscopy (10 Years) 1976 Annual Physical 04/16/1979 Hepatitis C 1994 DTaP, Tdap and Td Vaccines ( 1 - Tdap) 04/16/1995 Hepatitis B Vaccines (1 of 3 - 19+ 3-dose series) 04/16/1995 Cervical Cancer Screening Pa p with HPV Testing (Age 30 to 64) Every 5 Years 2006 Mammogram Screening 2016 COVID-19 Vaccine (4 - 2023-2 5 season) 2023 01/31/2021, 06/10/2020, 05/22/2020 Cervical Cancer Screening Pa p Smear (Age 30 to 64) Every 3 Years 04/19/2024 04/19/2021 Cervical Cancer Screening wi th HPV 04/19/2024 Meningococcal B Vaccine Aged Out No l onger eligible based on patient's age to complete this topic Meningococcal Vaccine Aged Out No ani kvng eligible based on patient's age to complete this topic Pneumococcal Vaccine: Pediatrics (0 to 5 Years) and At-Risk Patients (6 to 49 Years) Aged Out No longer eligible b ased on patient's age to complete this topic RSV Immunizations Under 20 Months Aged Out No longer eligible b ased on patient's age to complete this topic Insurance [employer] Care Teams Fire Control Technician B Relationship Specialty Start Date End Date None, Provider, PCP - General UNKNOWN PHYSICIAN SPECIALTY 10/26/22
[2024-06-21 15:58] VITALS: BP 107/75; PULSE 80; RESP 17; TEMP 36.6; O2SAT 100
--- NOTE | 2024-06-21 16:27 | ED.GENADULT ---
HPI - General Adult General Chief complaint: Extremity Problem,Nontraumatic Stated complaint: Left foot Pain Time Seen by Provider: 06/21/24 16:27 Source: patient Mode of arrival: ambulatory Limitations: no limitations Related Data Home Medications Medication Instructions Recorded Confirmed Last Taken Type estradiol 0.05 mg/24 hr semiweekly 06/21/24 Unknown History transdermal patch progesterone micronized 100 mg mg 06/21/24 Unknown History capsule sumatriptan succinate 100 mg tablet mg PO 06/21/24 Unknown History ubrogepant 100 mg tablet (Ubrelvy) mg 06/21/24 Unknown History venlafaxine 37.5 mg mg PO 06/21/24 Unknown History capsule,extended release 24 hr Allergies Allergy/AdvReac Type Severity Reaction Status Date / Time Penicillins AdvReac Severe FACIAL Verified 06/21/24 16:19 SWELLING/HIVES Review of Systems Review of Systems: CONSTITUTIONAL: Denies fever, chills, or sweats. EYES: Denies visual changes, redness, or discharge. ENT: Denies rhinorrhea, congestion, sore throat, or otalgia. CARDIOVASCULAR: Denies chest pain, palpitations, or edema. RESPIRATORY: Denies cough or dyspnea. GASTROINTESTINAL: Denies abdominal pain, nausea, vomiting, or diarrhea. GENITOURINARY: Denies dysuria or hematuria. SKIN: Denies rash or itching. MUSCULOSKELETAL: Denies back pain, joint pain, or myalgia. NEUROLOGIC: Denies headache, numbness, or weakness. PSYCHIATRIC: Denies anxiety or depression. [facility] Past Medical History Medical History Migraine Social History Social History Smoking status: Never smoker Second hand tobacco smoke exposure: No Alcohol intake: current Drinks per week: 1 Substance use: never Living arrangements: with family Spiritual care concerns: No Comments At the time of my signature I agree with nursing past medical history, surgical, social, and family history. There is no relevant family history pertinent to the presenting complaint. Exam Narrative: GENERAL: Well-appearing, well-nourished, and in no acute distress. HEAD: Normocephalic, atraumatic. EYES: PERRLA and EOMI. ENT: Nares clear, no rhinorrhea or epistaxis. Mucous membranes moist. NECK: Supple. No lymphadenopathy CHEST: Clear to auscultation. No respiratory distress. HEART: Regular rate and rhythm. No murmur heard. Normal peripheral pulses. ABDOMEN: Soft, nontender, nondistended, normal active bowel sounds. EXTREMITIES: Normal range of motion. No edema. SKIN: Warm, dry, no rash. NEURO: No focal deficits. Alert and oriented x3. Course Course Level of Care: Express Care Visit Vital Signs Vital signs: Vital Signs Temperature 36.6 C 06/21/24 15:58 Pulse Rate 80 06/21/24 15:58 Respiratory Rate 17 06/21/24 15:58 Blood Pressure 107/75 06/21/24 15:58 Pulse Oximetry 100 06/21/24 15:58 Oxygen Delivery Room Air 06/21/24 15:58 Temperature 36.6 C 06/21/24 15:58 Pulse Rate 80 06/21/24 15:58 Respiratory Rate 06/21/24 15:58 Blood Pressure 107/75 06/21/24 15:58 Pulse Oximetry 100 06/21/24 15:58 Oxygen Delivery Room Air 06/21/24 15:58 Vital signs reviewed. Medical Decision Making Differential Diagnosis Differential Diagnosis: Differential diagnosis: Foot fracture, crush injury, compartment syndrome, contusion, sprain, tendinitis,lisfranc sprain or fracture, avulsion fracture, grown toenail, diabetic ulcer. Vital Signs Vital Signs: Vital Signs Temperature 36.6 C 06/21/24 15:58 Pulse Rate 80 06/21/24 15:58 Respiratory Rate 06/21/24 15:58 Blood Pressure 107/75 06/21/24 15:58 Pulse Oximetry 100 06/21/24 15:58 Oxygen Delivery Room Air 06/21/24 15:58 Temperature 36.6 C 06/21/24 15:58 Pulse Rate 80 06/21/24 15:58 Respiratory Rate 06/21/24 15:58 Blood Pressure 107/75 06/21/24 15:58 Pulse Oximetry 100 06/21/24 15:58 Oxygen Delivery Room Air 06/21/24 15:58 Imaging Data Radiologist's impression: [facility] [address] [address] XRay Report Signed Patient: Farrah Dillard : 1975 MR#: [id number] Age: 49 Acct:[id number] Loc: [facility] ADM Date: 06/21/24Attending Dr: Ordering Physician: Maribell Sterling APRN Date of Service: 06/21/24 Procedure(s): XR foot RT min 3V Accession Number(s): [id number] cc: Sarah, Augustus Garcia MD; Maribell Sterling APRN~ XR foot RT min 3V Ordering provider: BRENDAN Saab History: . fall rolled foot today/lateral pain swelling . Comparison: None. FINDINGS: BONES: No acute fracture or dislocation. Postoperative changes in the fifth metatarsal bone. JOINT SPACES: Normal. No tarsal coalition. SOFT TISSUES: Normal. Calcaneal spur. IMPRESSION: No acute osseous abnormality of the right foot. Reviewed, dictated and finalized at location A. Critical Care Time Critical Care Time Critical Care Time: No Discharge Plan Discharge Clinical Impression: Right foot sprain Qualifiers: Encounter type: initial encounter Qualified Code(s): S93.601A - Unspecified sprain of right foot, initial encounter Patient Disposition: Home Condition: Stable Instructions: Antibiotic Form, Foot Sprain (ED) Additional Instructions: Avoid weight bearing until the pain subsides. Ice to the area 20-30 minutes 4-6 times a day Elevate above heart Elastic wrap or orthopedic splint as directed for comfort for the next 5-7 days Crutches as directed if needed Tylenol for lesser pain Ibuprofen regularly for the next 2-3 days for the inflammation Follow up with your primary care provider if the condition is not improving within 1 week or sooner if the Condition worsens with numbness, tingling, decrease sensation with weakness to seek ER. Patient Language: Nepali Prescriptions: No Action venlafaxine 37.5 mg capsule,extended release 24hr PO sumatriptan succinate 100 mg tablet PO estradiol 0.05 mg/24 hr patch semiweekly progesterone micronized 100 mg capsule Ubrelvy 100 mg tablet Follow-up/Referrals: Sarah,Augustus Garcia MD [Primary Care Provider] - Time of Disposition: 17:11
[2024-06-21] MEDS: ACETAMINOPHEN 500 MG TABLET 1000 MG PO (16:38)
== END 2024-06-21 17:22 | disposition home or self-care (01) ==
PROVIDERS: Emergency Provider Nurse Practitioner Family; PCP Family Medicine
DX: S93.602A Unspecified sprain of left foot, initial encounter (principal); X58.XXXA Exposure to other specified factors, initial encounter
CPT/HCPCS: 73630; 99213; A9270; G0463

== ENCOUNTER 2024-09-02 13:57 | Outpatient (CLI) | payer OTHER, SELFPAY ==
--- NOTE | ~2024-09-02 | MM_ITS ---
EXAMINATION: MM screening yuriy BI w carla HISTORY: Screening TECHNIQUE: Craniocaudal and mediolateral oblique 3-D tomosynthesis images were obtained and synthetic 2-D images were generated. CAD analysis was submitted and interpreted. COMPARISON: Comparison to multiple prior studies sequentially, with oldest reviewed study dated 06/2021. BREAST PARENCHYMAL COMPOSITION: Dense: The breasts are extremely dense, which lowers the sensitivity of mammography. FINDINGS: There is no evidence of suspicious mass, calcification, or architectural distortion to sugg est malignancy in either breast. There has been no suspicious interval change. IMPRESSION: 1. No mammographic evidence of malignancy. 2. Recommend routine screening mammography in one year. BI-RADS Category 1: Negative Reviewed, dictated and finalized at location B.
== END 2024-09-02 13:58 | disposition home or self-care (01) ==
PROVIDERS: PCP Family Medicine; Visit Provider Student in an Organized Health Care Education/Training Program
DX: Z12.31 Encounter for screening mammogram for malignant neoplasm of breast (principal)
CPT/HCPCS: 77063; 77067

== ENCOUNTER 2024-09-23 09:46 | Outpatient (CLI) | payer OTHER, SELFPAY ==
--- NOTE | ~2024-09-23 | US_ITS ---
EXAMINATION TYPE: US breast BI limited COMPARISON: NONE REASON FOR STUDY: BILAT NIPPLE DISCHARGE TECHNIQUE: Targeted sonographic evaluation of the bilateral breasts was performed. INTERPRETATION: There are mildly dilated ducts in bilateral subareolar regions. There is a 5 mm simple cyst in the left breast subareolar region. There is an additional 4 mm cyst also in the left breast subareolar region. No solid or intraductal mass identified. IMPRESSION: No distinct evidence for malignancy. Mildly dilated ducts in the bilateral subareolar regions. BI-RADS CATEGORY: BI-RADS 2: Benign Reviewed, dictated and finalized at location . IMPRESSION: No distinct evidence for malignancy. Mildly dilated ducts in the bilateral suba reolar regions. BI-RADS CATEGORY: BI-RADS 2: Benign
== END 2024-09-23 09:47 | disposition home or self-care (01) ==
LOC: MICIMG 09:47
PROVIDERS: PCP Student in an Organized Health Care Education/Training Program; Visit Provider Student in an Organized Health Care Education/Training Program
DX: N64.52 Nipple discharge (principal)
CPT/HCPCS: 76642

== ENCOUNTER 2024-12-21 08:15 | Emergency (ER) | payer OTHER, SELFPAY ==
--- OUTSIDE RECORDS SUMMARY | 2024-12-21 08:20 | XMS_ITS | Data Portability ---
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 Patient will come back in a year unless there are new symptoms. [email or web address] Not available 04/04/2024 09:15:03 Plan of Treatment Reminders Order Date Submit Date Provider Last Modified By Organization Details Last Modified Time Details Appointments None recorded. Lab prolactin, serum [address] [facility] (Lab), [address] [place], [address], 10:35:05 CMP, serum or plasma [email or web address] [place] [address] (Lab), [address] [place], [address], 5 18:39:21 CBC w/ auto diff [address] [facility] (Lab), [address] [place], [address], 07/31/202 5 10:35:04 TSH, serum or plasma [address] [facility] (Lab), [address], [place], [address], 5 10:35:04 hormone panel, serum or plasma [address] [facility] (Lab), [address], [place], [address], 5 10:35:05 Referral None recorded. Procedures colonoscop y screening (PROC) 2024 025 [facility], [address], [address], [place], [address], 18:03:41 Surgeries None recorded. Imaging MAMMO, diagnostic , digital, bilateral - Bilateral bloody nipple discharge during mammogram 09/02/242024 025 [email or web address] [facility], [address], [place], [address], 18:39:26 US, breast, bilateral - Bilateral bloody nipple discharge during mammogram 09/02/242024 025 [facility], [address], [place], [address], 5 11:48:50 MAMMO, screening, digital, bilateral 2024 025 [email or web address] [facility], [address], [place], [address], 5 09:34:54 Medication Orders estradiol 0.075 mg/24 hr semiweekly transderma l patch 2024 025 [facility]/Pharmacy #[id number], [address] [place], [address], 5 18:15:53 progestero ne micronized 100 mg capsule [address]/Pharmacy #2510, [address] [place], [address], 5 18:16:00 estradiol 0.05 mg/24 hr semiweekly transderma l patch [email or web address]/Pharmacy #2510, [address] [place], [address], 5 18:15:24 Effexor XR 37.5 mg capsule,ex tended release 2024 [facility] [address] [place], [address], 5 17:14:35 Patient TargetsNo targets recorded. Patient InstructionsNo [...] Repor t Case: [id number] Autho rilázaron g Provi freedom: Meghan Encarnacion MD Colle cted: [...] adams and/o r histo rical findi ngs, [facility] inv[facility] tigat ion is recom sabrina d, as clini manuel cárdenas nted. Not Available [facility] (Lab) [address], [place], [address], 04/26/2021 12:24:52 04/09/19 25 04/08/2024 IMAGE GUIDE D PAP AND HPV REGAR DLESS image guided Pap, HPV regardless of Pap result SEE RESULT S BELOW CASE REPOR T: Cytol ogy Gynec ologi adams Repor t Case: [id number] Autho don g Provi freedom: Dermo dy, Edda , ANP, NEWS [facility] Colle cted: 04/08 0841 Order ing Locat ion: [place] [facility] loglizeth Recei jack: 04/09 0756 First Scree n: [...] OSIS: Negat kylah for Intra epith elial Lessylwia mccollum or Hardeep nash ([facility]) . 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 Not Available [facility] (Lab) [address], [place], [address], 04/11/2024 10:27:56 09/04/19 25 09/03/2024 CBC W/DIF F WBC 5.0 10'3/ uL 3.5-10 .5 Not Available [facility] (Lab) [address], [place], [address], 09/04/2024 10:35:04 09/04/19 25 09/03/2024 CBC W/DIF F RBC 5.67 10'6/ uL (based on docume nted legal sex) 3.80-5 .20 high Not Available [facility] (Lab) [address], [place], [address], 09/04/2024 10:35:04 09/04/19 25 09/03/2024 CBC W/DIF F HGB 14.1 g/dL (based on docume nted legal sex) 11.6-1 5.4 Not Available [facility] (Lab) [address], [place], [address], 09/04/2024 10:35:04 09/04/19 25 09/03/2024 CBC W/DIF F HCT 44.6 % (based on docume nted legal sex) 34.0-4 5.0 Not Available [facility] (Lab) [address], [place], [address], 09/04/2024 10:35:04 09/04/19 25 09/03/2024 CBC W/DIF F MCV 78.7 fL 80.0-9 9.0 low Not Available [facility] (Lab) [address], [place], [address], 09/04/2024 10:35:04 09/04/19 25 09/03/2024 CBC W/DIF F MCH 24.9 pg 27.0-3 4.0 low Not Available [facility] (Lab) [address], [place], [address], 09/04/2024 10:35:04 09/04/19 25 09/03/2024 CBC W/DIF F MCHC 31.6 g/dL 32.0-3 5.5 low Not Available [facility] (Lab) [address], [place], [address], 09/04/2024 10:35:04 09/04/19 25 09/03/2024 CBC W/DIF F RDW 23.7 % 11.0-1 5.0 high Not Available [facility] (Lab) [address], [place], [address], 09/04/2024 10:35:04 09/04/19 25 09/03/2024 CBC W/DIF F plt 179 10'3/ uL 150-40 0 Not Available [facility] (Lab) [address], [place], [address], 09/04/2024 10:35:04 09/04/19 25 09/03/2024 CBC W/DIF F MPV 10.4 fL 8.8-12 .1 Not Available [facility] (Lab) [address], [place], [address], 09/04/2024 10:35:04 09/04/19 25 09/03/2024 CBC W/DIF F NRBC's 0.0 % 0.0 Not Available [facility] (Lab) [address], [place], [address], 09/04/2024 10:35:04 09/04/19 25 09/03/2024 CBC W/DIF F absolute NRBCs 0.0 10'3/ uL no refere nce range establ ished Not Available [facility] (Lab) [address], [place], [address], 09/04/2024 10:35:04 09/04/19 25 09/03/2024 CBC W/DIF F neutrophils 42.0 % 34.0-7 3.0 Not Available [facility] (Lab) [address], [place], [address], 09/04/2024 10:35:04 09/04/19 25 09/03/2024 CBC W/DIF F lymphocytes 43.2 % 15.0-5 0.0 Not Available [facility] (Lab) [address], [place], [address], 09/04/2024 10:35:04 09/04/19 25 09/03/2024 CBC W/DIF F monocytes 10.2 % 1.0-15 .0 Not Available [facility] (Lab) [address], [place], [address], 09/04/2024 10:35:04 09/04/19 25 09/03/2024 CBC W/DIF F eosinophils 3.2 % 0.0-8. 0 Not Available [facility] (Lab) [address], [place], [address], 09/04/2024 10:35:04 09/04/19 25 09/03/2024 CBC W/DIF F basophils 1.0 % 0.0-2. 0 Not Available [facility] (Lab) [address], [place], [address], 09/04/2024 10:35:04 09/04/19 25 09/03/2024 CBC W/DIF F immature granulocytes 0.4 % no define d refere nce range Immat ure Granu locyt es (IG) repre sents autom ated enume ratio n of Metam yeloc ytes, Myelo cytes and Promy elocy radha when IG is < 5%. Blast s are not inclu ded in IG and repor nishant separ ately if prese nt. Not Available [facility] (Lab) [address], [place], [address], 09/04/2024 10:35:04 09/04/19 25 09/03/2024 CBC W/DIF F absolute neutrophils 2.1 10'3/ uL 1.5-8. 0 Not Available [facility] (Lab) [address], [place], [address], 09/04/2024 10:35:04 09/04/19 25 09/03/2024 CBC W/DIF F absolute lymphocytes 2.2 10'3/ uL 1.0-4. 0 Not Available [facility] (Lab) [address], [place], [address], 09/04/2024 10:35:04 09/04/19 25 09/03/2024 CBC W/DIF F absolute monocytes 0.5 10'3/ uL 0.2-1. 0 Not Available [facility] (Lab) [address], [place], [address], 09/04/2024 10:35:04 09/04/19 25 09/03/2024 CBC W/DIF F absolute eosinophils 0.2 10'3/ uL 0.0-0. 6 Not Available [facility] (Lab) [address], [place], [address], 09/04/2024 10:35:04 09/04/19 25 09/03/2024 CBC W/DIF F absolute basophils 0.1 10'3/ uL 0.0-0. 3 Not Available [facility] (Lab) [address], [place], [address], 09/04/2024 10:35:04 09/04/19 25 09/03/2024 CBC W/DIF F absolute immature granulocytes 0.0 10'3/ uL 0.00-0 .10 Refer ence range s for nonbi nary/ inter sex or unspe cifie d gende r patie nts have not been estab lishe d. Pleas e refer to the follo wing table for range s estab lishe d for cisge nder patie nts and evalu ate in the clini adams linda xt of the indiv idual patie nt: https ://gavin rodriguez book. nm.or g/gen derx Not Available [facility] (Lab) [address], [place], [address], 09/04/2024 10:35:04 09/04/19 25 09/03/2024 TSH, REFLE X FREE T4 TSH 1.04 uIU/m L 0.30-5 .33 Not Available [facility] (Lab) [address], [place], [address], 09/04/2024 10:35:04 09/04/19 25 09/03/2024 PROLA CTIN prolactin, total 7.29 NG/mL 4.79-2 3.30 This assay was perfo rmed using [employer] ratio n reage nts and test kits. Value s obtai yaakov with other assay metho ds or kits canno t be used inter [facility] . Not Available [facility] (Lab) [address] [place], [address], 09/04/2024 10:35:05 09/04/19 25 09/03/2024 FSH, LH, ESTRA DIOL estradiol 32.1 pg/mL This assay was perfo rmed using [employer] n reage nts and test kits. Value s obtai yaakov with other assay metho ds or kits canno t be used inter [facility] . Femal e Estra diol Range s: Folli cular phase 12.4- 233 pg/mL Ovula tion phase 41.0- 398 pg/mL Lutea l phase 22.3- 341 pg/mL Postm enopa usal <5-13 8 pg/mL Healt hy Pregn ant Women 1st Trime ster 154-3 243 pg/mL 2nd Trime ster 1561- 87322 pg/mL 3rd Trime ster 8525- >3000 0 pg/mL Not Available [facility] (Lab) [address] [place], [address], 09/04/2024 10:35:05 09/04/19 25 09/03/2024 FSH, LH, ESTRA DIOL FSH 25.4 mIU/m L This assay was perfo rmed using [employer] ratio n reage nts and test kits. Value s obtai yaakov with other assay metho ds or kits canno t be used inter [facility] . Femal es Folli cular : 3.5-1 2.5 mIU/m L Ovula tion: 4.7-2 1.5 mIU/m L Lutea l: 1.7-7 .7 mIU/m L Postm enopa use: 25.8- 134.8 mIU/m L Not Available [facility] (Lab) [address] [place], [address], 09/04/2024 10:35:05 09/04/19 25 09/03/2024 FSH, LH, ESTRA DIOL LH 27.2 mIU/m L This assay was perfo rmed using [employer] n reage nts and test kits. Value s obtai yaakov with other assay metho ds or kits canno t be used inter [facility] . Femal es Mid-F ollic ular: 2.4-1 2.6 mIU/m L Mid-C ycle: 14.0- 95.6 mIU/m L Mid-L uteal : 1.0-1 1.4 mIU/m L Postm enopa use: 7.7-5 8.5 mIU/m L Not Available [facility] (Lab) [address], [place], [address], 09/04/2024 10:35:05 06/10/19 22 06/09/2021 MAMMO , scree carol, bilat eral No observ ation record ed. [facility] [address], [place], [address], 06/13/2021 10:52:25 06/11/19 22 06/09/2021 MAMMO , scree carol, bilat eral No observ ation record ed. [facility] [address], [place], [address], 08/12/2021 10:39:55 06/29/19 22 06/28/2021 MAMMO , diagn ostic , unila teral No observ ation record ed. [facility] [address], [place], [address], 06/29/2021 15:04:20 09/03/19 25 09/02/2024 MAMMO , scree carol, digit al, bilat eral No observ ation record ed. [address], [place], [address], 09/03/2024 14:23:40 09/24/19 25 09/23/2024 US, maddy iniguez, isaias gates No observ ation record ed. [email or web address] [facility] [address], [place], [address], 09/26/2024 13:09:05 Result Notes None recorded. Procedures Surgical History Date Name Laterality Status Provider Name and Address Organization Details Recorded Time 5 Date of Last Mammogram completed [facility] 09/03/2024 11:40:59 5 Date of Last Pap Smear completed [facility] 07/09/2024 18:09:41 4 Tubal Ligation completed [facility] 04/19/2021 12:05:34 Ectopic completed [facility] 04/07/2024 17:00:31 Imaging Results None recorded. Procedure Notes None recorded. Medical Equipment None Reported. Medications Name Sig Start Date Stop Date Status Note LastModified by Organization Details LastModified Time venlafaxine ER 37.5 mg capsule,ext ended release 24 hr TAKE 1 CAPSULE BY MOUTH EVERY DAY 2024 active Not Available Not Available Not Avai lable estradiol 0.075 mg/24 hr semiweekly transdermal patch APPLY 1 PATCH TRANSDERM ALLY TWICE A WEEK active Not Available Not Available No t Available azithromyci n 250 mg tablet TAKE 2 TABLETS BY MOUTH TODAY, THEN TAKE 1 TABLET DAILY FOR 4 DAYS DIRECTED 09/03 completed Not Available Not Available Not Available sumatriptan 100 mg tablet PLEASE SEE ATTACHED FOR DETAILED DIRECTION S 09/03 completed Not Available Not Available Not Available estradiol 0.05 mg/24 hr semiweekly transdermal patch APPLY 1 PATCH TRANSDERM ALLY TWICE A WEEK 07/09 completed Not Available Not Available Not Available progesteron e micronized 200 mg capsule TAKE 1 CAPSULE BY MOUTH EVERY DAY 2024 active Not Available Not Available Not Avai lable progesteron e micronized 100 mg capsule TAKE 1 CAPSULE BY MOUTH EVERYDAY AT BEDTIME 07/09 completed Not Available Not Available Not Available eletriptan 20 mg tablet TAKE 1 TABLET BY MOUTH AT ONSET OF HEADACHE MAY REPEAT IN 2 HOURS IF NEEDED MAX DAILY DOSE 2 TABLETS 09/03 completed Not Available Not Available Not Available nitrofurant oin monohydrate /macrocryst als 100 mg capsule TAKE 1 CAPSULE TWICE A DAY FOR 5 DAYS 05/19 completed Not Available Not Available Not Available Slynd 4 mg (28) tablet Take 1 tablet every day by oral route. 2024 active Not Available Not Available Not Avai lable Ubrelvy 100 mg tablet TAKE 1 TABLET EVERY DAY NEEDED FOR 30 DAYS active Not Available Not Available No t Available Vitals Date Recorded Body height Body mass index (BMI) Body weight Systolic And Diastolic Provider Name and Address Organization Details Last Updated DateTime 04/07/2024 160.02 cm 21.5 kg/m2 16247.83 g 119/81 mm[Hg] [facility] 04/07/2024 16:55:59 Date Recorded Body height Body mass index (BMI) Body weight Systolic And Diastolic Provider Name and Address Organization Details Last Updated DateTime 04/19/2021 160.02 cm 27.1 kg/m2 31413.63 g 129/77 mm[Hg] [facility] 04/19/2021 12:05:21 Date Recorded Body height Body mass index (BMI) Body weight Systolic And Diastolic Provider Name and Address Organization Details Last Updated DateTime 05/19/2024 160.02 cm 21.1 kg/m2 45208.49 g 123/86 mm[Hg] [facility] 05/19/2024 17:46:44 Date Recorded Body height Body mass index (BMI) Body weight Systolic And Diastolic Provider Name and Address Organization Details Last Updated DateTime 07/09/2024 160.02 cm 21 kg/m2 21671.06 g 118/84 mm[Hg] [facility] 07/09/2024 18:09:29 Date Recorded Body height Body mass index (BMI) Body weight Systolic And Diastolic Provider Name and Address Organization Details Last Updated DateTime 09/03/2024 160.02 cm 20.7 kg/m2 89030.31 g 107/73 mm[Hg] Clarissa Jang [facility] 09/03/2024 11:47:59 Social History Question Answer Notes LastModified by Organizat ion Details LastModified Time Tobacco Smoking Status Never Smoker Dian Ponce petar [facility] 04/19/2021 10:23:21 Do You Have An Advance Directive? No [email or web address] Information n ot available 04/07/2024 Are You Blind Or Do You Have Difficulty Seeing? No [email or web address] Information n ot available 04/07/2024 What Is Your Level Of Caffeine Consumption? Moderate [email or web address] Information not available 04/07/2024 How Much Tobacco Do You Chew? None Information not available 04/07/2024 In The 14 Days Before Symptom Onset, Have You Had Close Contact With A Laboratory-confirm ed COVID-19 While That Case Was Ill? No [email or web address] Information n ot available 04/07/2024 In The 14 Days Before Symptom Onset, Have You Had Close Contact With A Person Who Is Under Investigation For COVID-19 While That Person Was Ill? No [email or web address] Information not available 04/07/2024 Have You Been To An Area Known To Be High Risk For COVID-19? No [email or web address] Information not available 04/07/2024 Are You Deaf Or Do You Have Serious Difficulty Hearing? No [email or web address] Information not available 04/07/2024 What Type Of Diet Are You Following? REGULAR [email or web address] Information n ot available 04/07/2024 What Is The Highest Grade Or Level Of School You Have Completed Or The Highest Degree You Have Received? [id number] [email or web address] Information not available 04/07/2024 Are There Any Guns Present In Your Home? No [email or web address] Information not available 04/07/2024 Have You Ever Been Counseled For Unhealthy Alcohol Use? No Information not available 04/19/2021 Do You Use Protection During Sex? No [email or web address] Information not available 04/07/2024 Do You Use Your Seat Belt Or Car Seat Routinely? Yes [email or web address] Information not available 04/07/2024 Do You Have Smoke And Carbon Monoxide Detectors In Your Home? Yes [email or web address] Information not available 04/07/2024 How Much Tobacco Do You Smoke? No [email or web address] Information not available 04/07/2024 Do You Use Sunscreen Routinely? Yes [email or web address] Information not available 04/07/2024 Has Tobacco Cessation Counseling Been Provided? No Information not available 04/19/2021 Have You Used IV Drugs? No [email or web address] Information not available 04/07/2024 Sex: Unknown Functional [...] not available 04/19/2021 Are you able to walk independently without assistance or assistive devices? 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 Occasional [email or web address] Information not available 04/07/2024 Mental Status Question Answer Note LastModified by Organization D etails LastModified Time Do you feel stressed (tense, restless, nervous, or anxious, or unable to sleep at night)? [id number] [email or web address] Information not available 04/07/2024 Family History Relationship Description Onset Age of this Age Resolved Age Notes LastModified by Organization Details LastModified Time Paternal Grandmother Carcinoma in situ of breast [email or web address] Not available 2021 12:06:33 Medical History Condition Response Allergies (Food, seasonal, environmental ) N Other N Breast Cancer N Drug/Latex Allergies/Reactions N Blood Transfusion N Dermatologic Disorders N Lung Disease N Defects or Inherited Disease N Breast Problem N Gestational Diabetes N Hematologic disorders N Anesthesia Complications N History of STI N Deep Vein Thrombosis N Polycystic ovary syndrome N Anxiety Disorder N Autoimmune disease N Arthritis N Infertility N Polyps N Acid Reflux (GERD) N History of abnormal pap N Cancer N Stroke N Varicosities N Neurologic/Epilepsy N Endometriosis N High Cholesterol N Headaches Y Fibromyalgia N Kidney Disease N Heart Problems N Kidney or Bladder Problems N Thyroid Problems N GI Problems N Eating Disorder [...] Abnormal Pap N Date of Last Mammogram 09/02/2024 Flow Light Date of LMP 08/15/2024 On BCP's at Conception? N N Was last menstrual period normal N STIs/STDs N HPV Vaccine N Duration of Flow (days) 16 Current Control Method Tubal Ligat ion Age at First Child 19 Are cycles usually normal N Frequency of Cycle (Q days) 29 Sexually Active? Y Menses Monthly N Age of first menstrual cycle 16 Date of Last Pap Smear 04/08/2024 Sexual Problems? N LMP Definite N Obstetrics History GPAL:G 4 P 3 0 1 3 Type Value Full Term 3 Living 3 Ectopics 1 Total 4 Past Encounters Encounter ID Performer Location Encounter Start Date Encounter Closed Date Diagnosis/Indication Diagnosis SNOMED-CT Code Diagnosis ICD10 Code Diagnosis IMO Codes Diagnosis Note [id number] Meghan Sanchez MD [facility] [address] [address] 04/19/2021 11:55:38 04/19/2021 13:03:19 Gynecologic examination 50060646 Z01.419 [id number] Radames Tristan MD [facility] [address] [address] 04/07/2024 16:47:23 04/07/2024 17:24:31 Gynecologic examination 47862190 Z01.419 Annual gynecologi adams exam performed. Patient [...] GI referral for screening colonoscop y at [facility] DEXA scan- n/a Pap smear- pap w/ HPV collected laboratory evaluation - PCP STI testing - declined Screening mammography 24 924430 Z12.31 Menopausal symptom 34106 002 N95.1 Reviewed self-help strategies (dietary changes/ex ercise/acc upuncture/ etc.), herbal and other OTC therapies, hormonal options as well as other medication s used to treat common menopausal symptoms. Discussed the risks, benefits and potential side effects and bleeding patterns with use of HRT, SSRIs, and Veozah. Reviewed the risk implicatio ns with short term vs moth exterminator use. Patient interested in trying Effexor. Rx sent.RTO in 6 week f/u med check Screening for malignant neoplasm of colon 557177964 Z12.11 [id number] Radames Tristan MD [facility] [address] [address] 05/19/2024 17:32:35 05/19/2024 18:08:13 Menopausal symptom 47128960 N95.1 Discussed trialling HRT with transderma l [...] migraine w/ visual changes, breast cancer dx, TX/stroke, DVT/PE, Endometria l cancer. Please contact office with any new or worsening side effects or adverse reactions. Or if a medical emergency please go to nearest ED/[facility] for further evaluation . [id number] Radames Tristan MD [facility] [address] [address] 07/09/2024 18:02:29 07/10/2024 09:04:37 Menopausal symptom 55626391 N95.1 Discussed increasing estradiol patch dosage to 0.075 mg twice weekly to help improve night sweats and hot flashes. Recommende d that patient stay on 200 mg of PO progestero ne nightly.Ri sks/benefi ts/AEs of HRT reviewed in detail.RTO in 3 months for medication check, or sooner if patient has questions or concerns. [id number] Radames Tristan MD [facility] [address] [address] 09/03/2024 11:38:06 09/03/2024 13:25:17 Bilateral discharge from nipples [id number] 2743169 N64.52 [id number] Discussed that breast exam today was normal.Dis cussed physiologi c vs. pathologic nipple discharge. Also discussed that bloody discharge only during mammogram could be related to trauma to breast tissue during that exam.Order ed bilateral diagnostic mammogram and ultrasound for further evaluation . Patient to schedule.L abs to check prolactin, CMP, CBC, TSH, and FSH/LH/est radiol ordered.Wi ll f/u with results.Norm trevino advised to perform self-breas t exams and report any changes. Health Concerns Section Related Observation LastModified by Organization Detai ls LastModified Time None Recorded Concern Status LastModified by Organization Details LastModified Time None Recorded Advance Directives Directive N: Payers Insurance Date Sequence Insurance Name Policy Number Policy Gonzalez Covered Member ID Gonzalez Member ID Guarantor Name 07/07/2024 1 [employer] (PPO) Kyle Nishant [id number] Farrah Dillard 05/19/2024 2 [employer] Carlos Dillard [id number] Farrah Dillard 09/02/2024 1 [facility] [id number] Kyle Haqy [id number] Farrah Dillard 05/17/2024 2 [place] [id number] 2 Carlos Dillard [id number] Farrah Nishant Notes Date Note Type Note Provider Name and Address Organization Details Recorded Time 2 text/html Patient is a 46yo who presents for an annual exam. 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 Paps were always normal. Periods still regular. last pap-2012 mammogram-2012 sexually active-y contraception-tubal seatbelts-y exercise-y depression-denies domestic violence-denies tobacco-n concerns-n Meghan Sanchez MD [address], [place], [address], [facility] 04/19/2021 12:50:08 5 text/html Annual GYNReported by PatientGenitourinary symptomsFor menstrual cycle, patient reportsirregular cycle intervals. For urinary symptoms, patient reportsno hematuriaandno incontinence. For vulva, patient reportsno genital lesion. For vagina, patient reportsnormal vaginal discharge.Breast symptomsFor breast, patient reportsno breast pain,no breast lump, andno nipple discharge.ContraceptionFo r current contraception, patient reportstubal ligation.Endocrine symptomsFor menopausal symptoms, patient reportshot flashesandinsomnia due to night sweatsbut reportsnormal vaginal lubrication. For sexual complaints, patient reportsno sexual complaints,no pain during intercourse, andnormal libido.Psychological symptomsFor psychological symptoms, patient reportsno depression,no anxiety, andno pmdd.Preventative measuresFor preventive measures, patient reportsencourage self breast examination,encourage regular exercise,encourage no tobacco use, andencourage regular mammograms starting age 40. Patient presents for annual well woman exam. Patient denies concerns today. Patient reports irregular cycle intervals since last year, every 28-90 days.Reports occasional night sweats and hot flashes. Clarissa davey, [facility] 04/07/2024 18:00:27 5 text/html 49 y/o harriet-menopausal female presents for med check after starting Effexor 37.5 mg PO daily to treat vasomotor symptoms. Patient states that the medication did not help her night sweats and she reports waking up several times per night still.Patient states that her LMP was 01/20/25. EDDA BOLDEN NP [address], [place], [address], [facility] 05/19/2024 18:03:12 5 text/html 49 y/o female presents for medication check after starting HRT with transdermal estradiol and oral progesterone 8 weeks ago.Patient states that she had irregular spotting when first starting HRT and progesterone dose was increased to 200 mg PO nightly. Patient states that she has not had bleeding since then.Patient reports that she has noticed some improvement in hot flashes, but worsening of night sweats. EDDA BOLDEN NP [address], [place], [address], [facility] 07/09/2024 18:28:14 5 text/html 49 y/o female presents with c/o having bloody nipple discharge in bilateral breasts during screening mammogram yesterday. Patient denies ever having bloody nipple discharge in the past.Patient states that her breasts are sore today and she felt as though her mammogram was most painful it has ever been. Denies skin changes or breast lumps. Patient currently on HRT with transdermal estradiol and Slynd; patient states that she was having vaginal bleeding while taking oral micronized progesterone, but states that she has not had bleeding since switching to Slynd a few days ago. EDDA BOLDEN NP [address], [place], [address], [facility] 09/03/2024 13:24:28 OBGyn Episode Ob Episode Information Episode Created Date Number of Fetuses Patient Bloodtype Patient rh Status Prepregnancy Weight lbs Domestic Partner Domestic Partner Phone Father Name Dish Up Person Status 04/20/19 22 1 CLOSED Fetus Data First Name Last Name Admitted to NICU Weight (g) Sex Living Outcome Pediatric Complications Fetus ID Race Codes Race Delivery Type Ectopic 73793 Giancarlo Calculation Initial Giancarlo Date Initial Exam [...] Domestic Partner Domestic Partner Phone Father Name Dish Up Person Status 04/20/19 22 1 CLOSED Fetus Data First Name Last Name Admitted to NICU Weight (g) Sex Living Outcome Pediatric Complications Fetus ID Race Codes Race Delivery Type 3628.73 6 M Full Term 44930 Vaginal Delivery Giancarlo Calculation Initial Giancarlo Date [...] Domestic Partner Domestic Partner Phone Father Name Dish Up Person Status 04/20/19 22 1 CLOSED Fetus Data First Name Last Name Admitted to NICU Weight (g) Sex Living Outcome Pediatric Complications Fetus ID Race Codes Race Delivery Type 3486.76 1704 F Full Term 94933 Vaginal Delivery Giancarlo Calculation Initial Giancarlo Date [...] Domestic Partner Domestic Partner Phone Father Name Dish Up Person Status 04/20/19 22 1 CLOSED Fetus Data First Name Last Name Admitted to NICU Weight (g) Sex Living Outcome Pediatric Complications Fetus ID Race Codes Race Delivery Type 3231.84 3 F Full Term 52813 Vaginal Delivery Giancarlo Calculation Initial Giancarlo Date [...]
--- OUTSIDE RECORDS SUMMARY | 2024-12-21 08:20 | XMS_ITS | Patient Health Record ---
Author Organization [facility] Address [address] [place], [place] [id number] Care Team Providers Care Building Equipment Inspector Name Role Phone HUOG BENNETT Unavailable [phone] Reason For Referral No Information Social History Social History Additional Details Category Social Info Options Details Migrated Social History Migrated Social History Alcohol intake : , Smoking Status : Former tobacco user , History of tobacco use : Plan Of Treatment No Information Insurance Providers Payer Name Payer Address Payer Phone Subscriber Number Group Number Insured Name Patient Relationship to Insured Coverage Start Date Coverage End Date [facility] ([facility]) ATTN CLAIMS [address] [place] [address] [id number] NUSRAT LOGAN Self - patient is the insured
--- OUTSIDE RECORDS SUMMARY | 2024-12-21 08:21 | XMS_ITS | Clinical Summary ---
Author Organization [facility] Address [address] [place] [id number] Care Team Providers Care Senior Planning Manager Name Role Phone None, Provider MD Primary [...] 8:57 AM CDT Height 160 cm (5' 3) 10/26/2022 8:57 AM CDT Body Mass Index [...] Every 5 Years 2006 Mammogram Screening 2016 Cervical Cancer Screening Pa p Smear (Age 30 to 64) Every 3 Years 04/19/2024 04/19/2021 Cervical Cancer Screening wi th HPV 04/19/2024 COVID-19 Vaccine (2024-2 6 season) 2024 01/31/2021, 06/10/2020, 05/22/2020 Influenza Adult (#1) 2024 Hepatitis A Vaccines Aged Out No long er eligible based on patient's age to complete this topic Meningococcal B Vaccine Aged Out No l [...] complete this topic Insurance [employer] Care Teams Senior Planning Manager Relationship Specialty Start Date End Date None, Provider, MD PCP - General UNKNOWN PHYSICIAN SPECIALTY 10/26/22
[2024-12-21 08:24] VITALS: BP 104/77; PULSE 84; RESP 18; TEMP 37.4; O2SAT 100
--- NOTE | 2024-12-21 08:33 | ED.SKABFB ---
HPI - Skin/Abscess/Foreign Bdy General Chief complaint: Skin/Abscess/Foreign Body Stated complaint: Skin Source: patient Mode of arrival: ambulatory Limitations: no limitations History of Present Illness HPI narrative: 49-year-old female presents to [facility] with complaints of poison maryam type rash to her buttocks, bilateral arms and in between breasts for the past 5 days. Patient reports that her recently was diagnosed with poison maryam after cutting down a tree in their yard. Patient has been applying [id number] topical ointments with little relief. Patient reports that she has had poison maryam in the past and her symptoms are similar. Patient shortness of breath, wheezing, trouble swallowing or difficulty breathing. MD complaint: rash Onset (ago): day(s) (5) Location: LUE, RUE and buttocks Severity: mild Relieving factors: none Treatments prior to arrival: OTC topical medication Related Data Home Medications ?Medication ?Instructions ?Recorded ?Confirmed ?Last Taken ?Type estradiol 0.05 mg/24 hr semiweekly 06/21/24 Unknown History transdermal patch progesterone micronized 100 mg mg 06/21/24 Unknown History capsule sumatriptan succinate 100 mg tablet mg PO 06/21/24 Unknown History ubrogepant 100 mg tablet (Ubrelvy) mg 06/21/24 Unknown History venlafaxine 37.5 mg mg PO 06/21/24 Unknown History capsule,extended release 24 hr Allergies Allergy/AdvReac Type Severity Reaction Status Date / Time Penicillins AdvReac Severe FACIAL Verified 12/21/24 08:17 SWELLING/HIVES Review of Systems Constitutional: Constitutional: Denies chills, Denies fatigue, Denies fever(s) and Denies weakness ENT: Denies vertigo, Denies dizziness and Denies epistaxis Respiratory: Respiratory: Denies cough, Denies dyspnea and Denies wheezing Gastrointestinal: Gastrointestinal: Denies diarrhea, Denies nausea and Denies vomiting Musculoskeletal: Musculoskeletal: Denies arthralgias and Denies joint swelling Integumentary/Breasts: Skin/Breast: Reports pruritus and Reports rash Neurologic: Denies vertigo, Denies dizziness, Denies syncope and Denies headache(s) [facility] Past Medical History Medical History Migraine Social History Social History Smoking status: Never smoker Second hand tobacco smoke exposure: No Alcohol intake: current Drinks per week: 1 Substance use: never Living arrangements: with family Spiritual care concerns: No Comments At time of signature, I agree with nursing past medical, surgical, social and family history. There is no relevant family history pertinent to the presenting complaint. Exam Const: General: healthy appearing and no acute distress Nutritional Appearance: well nourished Orientation/consciousness: patient oriented x3 Limitations: no limitations HENMT: Head: normal to inspection Mouth: Yes Normal oral and palatal mucosa present, Yes lip normal and Yes moist mucous membranes Teeth and gingiva: dentition normal Throat: posterior oropharynx normal and uvula midline Eyes: Conjunctivae: conjunctivae normal Neck: Neck: normal visual inspection Resp: Effort & Inspection: normal respiratory effort and not labored Auscultation: clear to auscultation bilaterally, no crackles, no rales, no rhonchi and no wheezes Cardio: Rate: regular rate Rhythm: regular rhythm Heart sounds: no murmurs Skin: General skin exam: normal color Wounds: no wounds Other: Raised erythematous rash noted to bilateral upper arms, buttocks and in between breasts representing poison maryam type rash. Esther RN was in exam room at time of examination Neuro: General: patient oriented x3 and moves all extremities Speech: normal speech Gait exam (Neuro): Normal gait present Psych: Affect: normal affect Attitude: cooperative Course Course Level of Care: Express Care Visit Vital Signs Vital signs: Vital Signs Temperature 37.4 C 12/21/24 08:24 Pulse Rate 84 12/21/24 08:24 Respiratory Rate 18 12/21/24 08:24 Blood Pressure 104/77 12/21/24 08:24 Pulse Oximetry 100 12/21/24 08:24 Oxygen Delivery Room Air 12/21/24 08:24 Temperature 37.4 C 12/21/24 08:24 Pulse Rate 84 12/21/24 08:24 Respiratory Rate 18 12/21/24 08:24 Blood Pressure 104/77 12/21/24 08:24 Pulse Oximetry 100 12/21/24 08:24 Oxygen Delivery Room Air 12/21/24 08:24 MDM - Skin/Abscess/Foreign Bdy MDM Narrative Medical decision making narrative: Instructed patient to take prednisone as prescribed and use steroid cream for the next week and then stop. Instructed patient to follow-up with primary care provider if symptoms not improve. Instructed patient to proceed to the emergency room symptoms worsen Differential Diagnosis Differential diagnosis: Likely abscess of skin or subcutaneous tissue, viral exanthem and urticaria Critical Care Time Critical Care Time Critical Care Time: No Discharge Plan Discharge Clinical Impression: Allergic dermatitis due to poison maryam Patient Disposition: Home Condition: Stable Instructions: Poison Maryam (ED) Additional Instructions: Take prednisone as prescribed Apply triamcinolone ointment as prescribed; discontinue use after 1 week Avoid hot showers or baths Follow-up with primary care provider if symptoms are not improved Proceed to the emergency room if symptoms worsen Patient Language: Divehi Prescriptions: New triamcinolone acetonide 0.1 % cream 1 applic topical BID 7 Days Qty: 15 0RF prednisone 10 mg tablet 10 mg PO DIRECTED Qty: 30 0RF Rx Instructions: see taper instructions; 40mg daily X 3 days, 30mg daily X 3 days, 20mg daily X 3 days. 10mg daily X 3 days No Action venlafaxine 37.5 mg capsule,extended release 24hr PO sumatriptan succinate 100 mg tablet PO estradiol 0.05 mg/24 hr patch semiweekly progesterone micronized 100 mg capsule Ubrelvy 100 mg tablet Follow-up/Referrals: Ilir,Ariane Aguilar APRN [Primary Care Provider, Unknown] Time of Disposition: 08:40
== END 2024-12-21 08:42 | disposition home or self-care (01) ==
PROVIDERS: Emergency Provider Nurse Practitioner Family; PCP Nurse Practitioner
DX: L23.7 Allergic contact dermatitis due to plants, except food (principal)
CPT/HCPCS: 99213; G0463